=== PATIENT | female | born 1950 | race Native Hawaiian/Other Pacific Islander ===

== ENCOUNTER 2016-06-10 09:36 | Outpatient (CLI) | payer OTHER | END 2016-06-10 09:37 | disposition home or self-care (01) | DX: J45.909 Unspecified asthma, uncomplicated (principal) ==

== ENCOUNTER 2016-11-13 12:38 | Outpatient (CLI) | payer OTHER ==
[2016-11-13 13:22] LABS: BASOPHILS % (AUTO) 0.6 %; EOSINOPHILS # (AUTO) 0.4 10^3/uL (0.0-0.7); EOSINOPHILS % (AUTO) 5.2 %; HCT - HEMATOCRIT 43.2 % (37.0-47.0); HGB - HEMOGLOBIN 14.6 g/dL (12.0-16.0); LYMPHOCYTES # (AUTO) 2.1 10^3/uL (1.5-3.5); LYMPHOCYTES % (AUTO) 29.2 %; MEAN CORPUSCULAR HEMOGLOBIN 28.8 pg (27.0-31.0); MEAN CORPUSCULAR HGB CONC 33.7 g/dL (32.0-36.0); MEAN CORPUSCULAR VOLUME 85.4 fL (81.0-99.0); MEAN PLATELET VOLUME 7.6 fL (7.9-10.8); MONOCYTES # (AUTO) 0.6 10^3/uL (0.0-1.0); MONOCYTES % (AUTO) 7.9 %; NEUTROPHILS # (AUTO) 4.1 10^3/uL (1.5-6.6); NEUTROPHILS % (AUTO) 57.1 %; RED BLOOD COUNT 5.06 10^6/uL (4.20-5.40); RED CELL DISTRIBUTION WIDTH 13.8 % (12.0-15.0); UNCORRECTED WHITE BLOOD COUNT 7.1 x10^3/uL; WHITE BLOOD COUNT 7.1 x10^3/uL (4.8-10.8)
[2016-11-13 13:43] LABS: ALBUMIN/GLOBULIN RATIO 1.3 (1.0-2.2); BILIRUBIN,TOTAL 1.1 mg/dL (0.2-1.0); BUN - BLOOD UREA NITROGEN 14 mg/dL (6-20); CALCIUM 9.3 mg/dL (8.5-10.3); CARBON DIOXIDE - CO2 26 mmol/L (21-32); CHLORIDE 103 mmol/L (101-111); CHOL/HDL RATIO 4.1 (<4.4); CHOLESTEROL 182 mg/dL; CREATININE 0.8 mg/dL (0.4-1.0); GFR - MDRD 72 (>89); GLUCOSE 92 mg/dL (70-100); HDL CHOLESTEROL 44 mg/dL; LDL/HDL RATIO 2.4 (<4.4); POTASSIUM 3.7 mmol/L (3.5-5.0); SODIUM 137 mmol/L (135-145); TOTAL PROTEIN 7.7 g/dL (6.7-8.2); TRIGLYCERIDES 165 mg/dL; VLDL CHOLESTEROL 33 mg/dL
[2016-11-13 14:18] LABS: THYROID STIMULATING HORMONE 1.29 uIU/mL (0.34-5.60)
== END 2016-11-13 12:39 | disposition home or self-care (01) ==
LOC: LAB 12:38
PROVIDERS: ATTEND Physician Assistant Medical
DX: Z00.00 Encounter for general adult medical examination without abnormal findings (principal); G89.29 Other chronic pain; E78.2 Mixed hyperlipidemia; R73.9 Hyperglycemia, unspecified
CPT/HCPCS: 36415; 80053; 80061; 82306; 82607; 84443; 85025

== ENCOUNTER 2017-01-22 16:10 | Outpatient (CLI) | payer OTHER ==
[2017-01-22 16:37] LABS: BASOPHILS # (AUTO) 0.1 10^3/uL (0.0-0.1); BASOPHILS % (AUTO) 0.9 %; EOSINOPHILS # (AUTO) 0.4 10^3/uL (0.0-0.7); EOSINOPHILS % (AUTO) 4.3 %; HCT - HEMATOCRIT 44.9 % (37.0-47.0); LYMPHOCYTES # (AUTO) 2.7 10^3/uL (1.5-3.5); LYMPHOCYTES % (AUTO) 29.3 %; MEAN CORPUSCULAR HEMOGLOBIN 28.5 pg (27.0-31.0); MEAN CORPUSCULAR HGB CONC 33.5 g/dL (32.0-36.0); MEAN CORPUSCULAR VOLUME 85.1 fL (81.0-99.0); MEAN PLATELET VOLUME 7.4 fL (7.9-10.8); MONOCYTES # (AUTO) 0.5 10^3/uL (0.0-1.0); MONOCYTES % (AUTO) 5.7 %; NEUTROPHILS # (AUTO) 5.5 10^3/uL (1.5-6.6); NEUTROPHILS % (AUTO) 59.8 %; NUCLEATED RED BLOOD CELLS AUTO 0.1 /100WBC; RED BLOOD COUNT 5.28 10^6/uL (4.20-5.40); RED CELL DISTRIBUTION WIDTH 14.2 % (12.0-15.0); UNCORRECTED WHITE BLOOD COUNT 9.1 x10^3/uL; WHITE BLOOD COUNT 9.1 x10^3/uL (4.8-10.8)
[2017-01-22 16:39] LABS: PT - PROTHROMBIN TIME 11.8 secs (9.9-12.6)
[2017-01-22 16:45] LABS: ALBUMIN/GLOBULIN RATIO 1.3 (1.0-2.2); BILIRUBIN,TOTAL 1.2 mg/dL (0.2-1.0); CALCIUM 9.6 mg/dL (8.5-10.3); CREATININE 0.8 mg/dL (0.4-1.0); POTASSIUM 3.8 mmol/L (3.5-5.0); TOTAL PROTEIN 7.7 g/dL (6.7-8.2)
[2017-01-22 16:47] LABS: PARTIAL THROMBOPLASTIN TIME 30.6 secs (24.9-33.3)
== END 2017-01-22 16:11 | disposition home or self-care (01) ==
LOC: LAB 16:10
PROVIDERS: ATTEND Physician Assistant Medical
DX: Z01.812 Encounter for preprocedural laboratory examination (principal); M50.10 Cervical disc disorder with radiculopathy, unspecified cervical region
CPT/HCPCS: 36415; 80053; 85025; 85610; 85730

== ENCOUNTER 2017-01-29 08:52 | Observation (INO) | payer OTHER ==
--- NOTE | 2017-01-29 09:25 | ED Physician Documentation ---
PD HPI FOCAL NEURO - Stated complaint Stated Complaint: SLURRED SPEECH - Chief complaint Chief Complaint: Neuro - History obtained from History obtained from: Patient - History of Present Illness Timing - onset: Enter time (0200), Last night Timing - duration: Hours Timing - details: Abrupt onset, Still present Severity of deficit: Mild Weakness: No: Face, Arm, Hand, Leg, Foot, Right, Left Numbness: No: Face, Arm, Hand, Leg, Foot, Right, Left Associated symptoms: Headache Contributing factors: negative: Anticoagulated Baseline status: positive: A&OX3, ambulatory, indep Similar symptoms before: Has not had sx before Recently seen: Other (The patient is preparing for surgery on her neck scheduled for this thursday.) - Additional information Additional information: 66-year-old female was in her usual state of health yesterday and last night she developed a headache headache was fairly bad and she does not usually get headaches. She went to bed and awoke at about 2 AM noted that her speech was slurred and that she was listing to the left side. She went back to sleep and got up and went to go to work today and was sent home from work. 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 With some stuttering speech and some listing to the left she has come to the emergency department. Review of Systems Constitutional: denies: Fever, Fatigue Eyes: denies: Decreased vision Ears: denies: Ear pain Nose: denies: Rhinorrhea / runny nose, Congestion Throat: denies: Sore throat Cardiac: denies: Chest pain / pressure, Palpitations Respiratory: denies: Dyspnea, Cough GI: denies: Abdominal Pain, Nausea, Vomiting, Constipation, Diarrhea : denies: Dysuria, Frequency Skin: denies: Rash Musculoskeletal: reports: Neck pain. denies: Back pain, Extremity pain Neurologic: reports: Difficulty speaking, Headache. 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 GIN: Dilation and currettage - Present Medications Home Medications: Ambulatory Orders Medication Instructions Recorded Confirmed Pravastatin Sodium [Pravachol] 30 mg PO DAILY 03/24/13 01/29/17 hydroCHLOROthiazide [Hydrodiuril] 25 mg PO ONCE 03/24/13 01/29/17 Oxycodone HCl/Acetaminophen 1 - 2 each PO Q6H PRN #15 tablet 02/01/14 01/29/17 [Percocet 5-325 mg Tablet] Meloxicam 30 mg PO DAILY 01/29/17 01/29/17 - Allergies Allergies/Adverse Reactions: Allergies Allergy/AdvReac Type Severity Reaction Status Date / Time Penicillins Allergy Mild Rash Verified 03/24/13 15:24 - Social History Does the pt smoke?: No Smoking Status: Never smoker Does the pt drink ETOH?: No Does the pt have substance abuse?: No - POLST Patient has POLST: No PD ED PE NORMAL - Vitals Vital signs reviewed: Yes (hypertensive ) - General General: Alert and oriented X 3, No acute distress, Well developed/nourished - HEENT HEENT: Atraumatic, PERRL, EOMI, Ears normal, Moist mucous membranes, Pharynx benign - Neck Neck: Supple, no meningeal sign, No bony TTP - Cardiac Cardiac: RRR, No murmur - Respiratory Respiratory: No respiratory distress, Clear bilaterally - Abdomen Abdomen: Soft, Non tender - Back Back: No CVA TTP, No spinal TTP - Derm Derm: Normal color, Warm and dry, No rash - Extremities Extremities: No deformity, No edema - Neuro Neuro: Alert and oriented X 3, lvn lpn 2-12 intact, No motor deficit, No sensory deficit, Normal speech - Psych Psych: Normal mood, Normal affect NIHSS - Time Time: 09:15 - Level of Consciousness Level of consciousness: (0) Alert, Keenly responsive LOC Questions: (0) Answers both Q's correct LOC Commands: (0) Performs both correctly - Gaze Best Gaze: (0) Normal - Visual Visual: (0) No loss - Facial Palsy Facial Palsy: (0) Normal, symmetrical movement - Motor Arms (both separate) Motor Arm (right): (0) No drift Motor Arm (left): (0) No drift - Motor Legs (both separate) Motor Leg (right): (0) No drift Motor Leg (left): (0) No drift - Limb Ataxia Limb Ataxia: (0) Absent - Sensory Sensory: (0) Normal - Best Language Best Language: (0) No aphasia - Dysarthria Dysarthria: (1) [id number] dysarthria - Extinction and Inattention (formally neg Extinction and inattention: (0) No abnormality - Total Score/Results Total Score/Result: 1 Results - Vitals Vitals: Vital Signs - 24 hr 01/29/17 01/29/17 01/29/17 08:57 09:38 10:09 Temperature 36.5 C Heart Rate 65 61 56 L Respiratory 20 18 16 Rate Blood Pressure 173/81 H 154/79 H 141/70 H O2 Saturation 97 97 97 01/29/17 11:12 Temperature 36.7 C Heart Rate 58 L Respiratory 20 Rate Blood Pressure 148/74 H O2 Saturation 98 Oxygen O2 Source Room air - EKG (time done) 0912 Rate: Rate (enter#) (59) Rhythm: NSR QRS: Low voltage Other comments: Other comments (early transition ) Compare to prior EKG: Old EKG unavailable Computer interpretation: Agree with computer - Labs Labs: Laboratory Tests 01/29/17 01/29/17 01/29/17 08:59 09:15 09:15 WBC 6.8 RBC 4.97 Hgb 14.2 Hct 42.6 MCV 85.7 MCH 28.5 MCHC 33.3 RDW 14.0 Plt Count 225 MPV 8.0 Neut # 3.6 Lymph # 2.2 [place] # 0.5 Eos # 0.4 Baso # 0.0 Absolute Nucleated RBC 0.00 Nucleated RBC % 0.0 Sodium 139 Potassium 3.9 Chloride 102 Carbon Dioxide 26 Anion Gap 11.0 BUN 13 Creatinine 0.7 Estimated GFR (MDRD) 83 L Glucose 107 H POC Whole Bld Glucose 114 H Calcium 9.4 Total Bilirubin 0.9 AST 30 ALT 22 Alkaline Phosphatase 62 Troponin I Total Protein 7.3 Albumin 4.0 Globulin 3.3 Albumin/Globulin Ratio 1.2 Lipase 31 Urine Color Urine Clarity Urine pH Ur Specific [place] Urine Protein Urine Glucose (UA) Urine Ketones Urine Occult Blood Urine Nitrite Urine Bilirubin Urine Urobilinogen Ur Leukocyte Esterase Ur Microscopic Review Urine Culture Comments 01/29/17 01/29/17 09:15 09:54 WBC RBC Hgb Hct MCV MCH MCHC RDW Plt Count MPV Neut # Lymph # [place] # Eos # Baso # Absolute Nucleated RBC Nucleated RBC % Sodium Potassium Chloride Carbon Dioxide Anion Gap BUN Creatinine Estimated GFR (MDRD) Glucose POC Whole Bld Glucose Calcium Total Bilirubin AST ALT Alkaline Phosphatase Troponin I < 0.04 Total Protein Albumin Globulin Albumin/Globulin Ratio Lipase Urine Color YELLOW Urine Clarity CLEAR Urine pH 7.0 Ur Specific [place] <=1.005 Urine Protein NEGATIVE Urine Glucose (UA) NEGATIVE Urine Ketones NEGATIVE Urine Occult Blood NEGATIVE Urine Nitrite NEGATIVE Urine Bilirubin NEGATIVE Urine Urobilinogen 0.2 (NORMAL) Ur Leukocyte Esterase NEGATIVE Ur Microscopic Review NOT INDICATED Urine Culture Comments NOT INDICATED - Rads (name of study) CT head without Radiology: Prelim report reviewed (Impression: No acute intracranial abnormality identified. No significant change from the prior study. 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 She does have a sister and a friend here this morning that are able to corroborate that she does have some issue with her speech. They state that she has some slurring of her speech periodically and some stuttering to her speech. 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 She appears to have had a TIA or CVA and we are now seeking admission. Departure - Departure Disposition: ED Place in Observation Clinical Impression: TIA (transient ischemic attack) Qualifiers: Transient cerebral ischemia type: unspecified Qualified Code(s): G45.9 - Transient cerebral ischemic attack, unspecified Condition: Stable
[2017-01-29 09:36] LABS: BASOPHILS % (AUTO) 0.7 %; EOSINOPHILS # (AUTO) 0.4 10^3/uL (0.0-0.7); EOSINOPHILS % (AUTO) 6.5 %; HCT - HEMATOCRIT 42.6 % (37.0-47.0); HGB - HEMOGLOBIN 14.2 g/dL (12.0-16.0); LYMPHOCYTES # (AUTO) 2.2 10^3/uL (1.5-3.5); LYMPHOCYTES % (AUTO) 32.5 %; MEAN CORPUSCULAR HEMOGLOBIN 28.5 pg (27.0-31.0); MEAN CORPUSCULAR HGB CONC 33.3 g/dL (32.0-36.0); MEAN CORPUSCULAR VOLUME 85.7 fL (81.0-99.0); MONOCYTES # (AUTO) 0.5 10^3/uL (0.0-1.0); MONOCYTES % (AUTO) 7.3 %; NEUTROPHILS # (AUTO) 3.6 10^3/uL (1.5-6.6); RED BLOOD COUNT 4.97 10^6/uL (4.20-5.40); UNCORRECTED WHITE BLOOD COUNT 6.8 x10^3/uL; WHITE BLOOD COUNT 6.8 x10^3/uL (4.8-10.8)
[2017-01-29 09:46] LABS: ALBUMIN/GLOBULIN RATIO 1.2 (1.0-2.2); BILIRUBIN,TOTAL 0.9 mg/dL (0.2-1.0); CALCIUM 9.4 mg/dL (8.5-10.3); CREATININE 0.7 mg/dL (0.4-1.0); POTASSIUM 3.9 mmol/L (3.5-5.0); TOTAL PROTEIN 7.3 g/dL (6.7-8.2)
--- NOTE | 2017-01-29 09:59 | CT Preliminary Report ---
Exam: CT Head W/O IMPRESSION: No acute intracranial abnormality identified. No significant change from the prior study. If clinical concern persists, consider further assessment with MRI. [facility] SITE ID: [id number]
--- NOTE | 2017-01-29 10:01 | CT Report ---
EXAM: CT HEAD EXAM DATE: 01/29/2017 09:53 AM. CLINICAL HISTORY: Headache slurred speech listing to the left. . COMPARISON: CT 06/14/2014. TECHNIQUE: Multiaxial CT images were obtained from the foramen magnum to the vertex. IV contrast: Non e. Reformats: Coronal. In accordance with CT protocol optimization, one or more of the following dose reduction techniques w ere utilized for this exam: automated exposure control, adjustment of mA and/or KV based on patient s ize, or use of iterative reconstructive technique. FINDINGS: Parenchyma: Evidence of parenchymal volume loss again noted, primarily frontal. No acute hemorrhage, mass effect, or midline shift. Angel-white differentiation appears maintained. Extraaxial Spaces: No acute extra-axial collection. Ventricles: Appropriate in size and configuration. Sinuses: Imaged paranasal sinuses, orbits, and mastoids show no significant abnormality. Bones: No depressed skull fracture. Other: None. IMPRESSION: No acute intracranial abnormality identified. No significant change from the prior study. If clinical concern persists, consider further assessment with MRI. [facility] Referring Provider Line: [phone] SITE ID: [id number]
[2017-01-29 10:17] LABS: BILIRUBIN,URINE NEGATIVE (NEGATIVE); UA CHARGE (STRIP ONLY) YES; UR CULTURE IF IND NOT INDICATED
[2017-01-29] MEDS ORDERED: ACETAMINOPHEN 325 MG TABLET PO STA (11:29)
[2017-01-29] MEDS ORDERED: SODIUM CHLORIDE 0.9% 1,000 ML IV ONE (11:30)
[2017-01-29] MEDS ORDERED: ACETAMINOPHEN 325 MG TABLET PO ONE (11:50)
[2017-01-29] MEDS ORDERED: PROCHLORPERAZINE 10 MG/2 ML VIAL IVP PRN (13:33)
[2017-01-29] MEDS ORDERED: LISINOPRIL 5 MG TABLET PO SCH (13:47)
[2017-01-29] MEDS ORDERED: hydroCHLOROthiazide 25 MG TABLET PO SCH (14:00)
[2017-01-29 14:40] LABS: CHOL/HDL RATIO 4.2 (<4.4); CHOLESTEROL 181 mg/dL; HDL CHOLESTEROL 43 mg/dL; LDL/HDL RATIO 1.7 (<4.4); TRIGLYCERIDES 322 mg/dL; VLDL CHOLESTEROL 64 mg/dL
[2017-01-29] MEDS ORDERED: GADOBUTROL 10 MMOL/10 ML VIAL ONE (14:48)
[2017-01-29] MEDS: SODIUM CHLORIDE FLUSH 0.9% 10 ML SYRINGE IVP SCH ×2 (14:56→22:51)
[2017-01-29 14:57] LABS: PT - PROTHROMBIN TIME 11.6 secs (9.9-12.6)
[2017-01-29] MEDS ORDERED: GADOBUTROL 10 MMOL/10 ML VIAL IVP ONE (15:48)
--- NOTE | 2017-01-29 16:32 | MRI Preliminary Report ---
Exam: MRI Angio Brain W/O (MRA) IMPRESSION: MR HEAD 1. Motion artifact technically limits evaluation. 2. No acute infarct, intracranial hemorrhage, mass, hydrocephalus, abnormal postcontrast enhancement. 3. Scattered white matter changes that appear similar to 02/27/2014 and while nonspecific, may repres ent sequela of chronic small vessel ischemic disease. MRA HEAD 1. Motion artifact technically limits evaluation. 2. No definite occlusion, stenosis, aneurysm, or anomaly seen. [facility] SITE ID: [id number]
--- NOTE | 2017-01-29 16:32 | MRI Preliminary Report ---
Exam: MRI Brain W/WO IMPRESSION: MR HEAD 1. Motion artifact technically limits evaluation. 2. No acute infarct, intracranial hemorrhage, mass, hydrocephalus, abnormal postcontrast enhancement. 3. Scattered white matter changes that appear similar to 02/27/2014 and while nonspecific, may repres ent sequela of chronic small vessel ischemic disease. MRA HEAD 1. Motion artifact technically limits evaluation. 2. No definite occlusion, stenosis, aneurysm, or anomaly seen. [facility] SITE ID: [id number]
--- NOTE | 2017-01-29 16:35 | MRI Report ---
EXAMS: MRI AND MRA BRAIN EXAM DATE: 01/29/2017 04:07 PM. CLINICAL HISTORY: 66-year-old with transient slurred speech and left-sided weakness COMPARISON: CT head 01/29/2017; MR brain 02/27/2014. TECHNIQUE: MRI: Multiplanar, multisequence T1-weighted and fluid-sensitive MRI sequences of the brain were performed. Sequences optimized for routine evaluation. Other: None. Post-processing: None. IV C ontrast: 10 cc GADAVIST. MRA: Multiplanar, multisequence T1-weighted and fluid-sensitive MRA sequences of the brain were perfo rmed. Other: None. Post-processing: Multiplanar 3D MIP reconstructions. IV Contrast: None. FINDINGS: MRI: Motion artifact technically limits evaluation. Brain Volume: Normal for age. Parenchyma/Dura: No acute parenchymal hemorrhage, mass, or midline shift. There are scattered foci of T2/FLAIR signal hyperintensity seen that appears similar to MR 02/27/2014.No areas of restricted dif fusion to suggest acute infarct. There is a punctate foci susceptibility artifact seen within the lef t putamen (series 801, image 13) and posterior left turner radiata (series 801, image 16) that appear new compared to prior study. Findings likely represent old hemorrhagic blood products and may be due to microhemorrhages from hypertension or represent old hemorrhagic infarcts. No abnormal postcontras t enhancement. Pituitary: Normal. Ventricles/Cisterns: No definite abnormal extra-axial fluid collection/mass seen. Ventricles and sulc i appear age appropriate. Cisterns are patent. Fluid is seen within Meckel's caves. Visualized intern brand al auditory canals appear clear. Sinuses: Visualized paranasal sinuses appear clear. Mastoid air cells and middle ear cavities appear clear. Orbits: Normal. Vasculature: Visualized major intracranial flow voids appear maintained. Bones: Normal. Other: None. MRA: RIGHT Internal Carotid (ICA): No aneurysm, stenosis or anomaly. Middle Cerebral (MCA): No aneurysm, stenosis or anomaly. Anterior Cerebral (DAVID): No aneurysm, stenosis or anomaly. Posterior Cerebral (PROCESSOR INSPECTOR): No aneurysm, stenosis or anomaly. Posterior Communicating (P-COM): Not definitively seen. No aneurysm. Vertebral: No aneurysm, stenosis or anomaly in the visualized upper vertebral artery. LEFT Internal Carotid (ICA): No aneurysm, stenosis or anomaly. Middle Cerebral (MCA): No aneurysm, stenosis or anomaly. Anterior Cerebral (DAVID): No aneurysm, stenosis or anomaly. Posterior Cerebral (PROCESSOR INSPECTOR): No aneurysm, stenosis or anomaly. Posterior Communicating (P-COM): No aneurysm, stenosis or anomaly. Vertebral: No aneurysm, stenosis or anomaly in the visualized upper vertebral artery. MIDLINE Anterior Communicating (A-COM): No aneurysm, stenosis or anomaly. Basilar artery: No aneurysm, stenosis or anomaly. Other: None. IMPRESSION: MR HEAD 1. Motion artifact technically limits evaluation. 2. No acute infarct, intracranial hemorrhage, mass, hydrocephalus, abnormal postcontrast enhancement. 3. Scattered white matter changes that appear similar to 02/27/2014 and while nonspecific, may repres ent sequela of chronic small vessel ischemic disease. MRA HEAD 1. Motion artifact technically limits evaluation. 2. No definite occlusion, stenosis, aneurysm, or anomaly seen. [facility] Referring Provider Line: [phone] SITE ID: [id number]
--- NOTE | 2017-01-29 16:35 | MRI Report ---
EXAMS: MRI AND MRA BRAIN EXAM DATE: 01/29/2017 04:07 PM. CLINICAL HISTORY: 66-year-old with transient slurred speech and left-sided weakness COMPARISON: CT head 01/29/2017; MR brain 02/27/2014. TECHNIQUE: MRI: Multiplanar, multisequence T1-weighted and fluid-sensitive MRI sequences of the brain were performed. Sequences optimized for routine evaluation. Other: None. Post-processing: None. IV C ontrast: 10 cc GADAVIST. MRA: Multiplanar, multisequence T1-weighted and fluid-sensitive MRA sequences of the brain were perfo rmed. Other: None. Post-processing: Multiplanar 3D MIP reconstructions. IV Contrast: None. FINDINGS: MRI: Motion artifact technically limits evaluation. Brain Volume: Normal for age. Parenchyma/Dura: No acute parenchymal hemorrhage, mass, or midline shift. There are scattered foci of T2/FLAIR signal hyperintensity seen that appears similar to MR 02/27/2014.No areas of restricted dif fusion to suggest acute infarct. There is a punctate foci susceptibility artifact seen within the lef t putamen (series 801, image 13) and posterior left turner radiata (series 801, image 16) that appear new compared to prior study. Findings likely represent old hemorrhagic blood products and may be due to microhemorrhages from hypertension or represent old hemorrhagic infarcts. No abnormal postcontras t enhancement. Pituitary: Normal. Ventricles/Cisterns: No definite abnormal extra-axial fluid collection/mass seen. Ventricles and sulc i appear age appropriate. Cisterns are patent. Fluid is seen within Meckel's caves. Visualized hr intern al auditory canals appear clear. Sinuses: Visualized paranasal sinuses appear clear. Mastoid air cells and middle ear cavities appear clear. Orbits: Normal. Vasculature: Visualized major intracranial flow voids appear maintained. Bones: Normal. Other: None. MRA: RIGHT Internal Carotid (ICA): No aneurysm, stenosis or anomaly. Middle Cerebral (MCA): No aneurysm, stenosis or anomaly. Anterior Cerebral (DAVID): No aneurysm, stenosis or anomaly. Posterior Cerebral (PRODUCTION ESTIMATOR): No aneurysm, stenosis or anomaly. Posterior Communicating (P-COM): Not definitively seen. No aneurysm. Vertebral: No aneurysm, stenosis or anomaly in the visualized upper vertebral artery. LEFT Internal Carotid (ICA): No aneurysm, stenosis or anomaly. Middle Cerebral (MCA): No aneurysm, stenosis or anomaly. Anterior Cerebral (DAVID): No aneurysm, stenosis or anomaly. Posterior Cerebral (PRODUCTION ESTIMATOR): No aneurysm, stenosis or anomaly. Posterior Communicating (P-COM): No aneurysm, stenosis or anomaly. Vertebral: No aneurysm, stenosis or anomaly in the visualized upper vertebral artery. MIDLINE Anterior Communicating (A-COM): No aneurysm, stenosis or anomaly. Basilar artery: No aneurysm, stenosis or anomaly. Other: None. IMPRESSION: MR HEAD 1. Motion artifact technically limits evaluation. 2. No acute infarct, intracranial hemorrhage, mass, hydrocephalus, abnormal postcontrast enhancement. 3. Scattered white matter changes that appear similar to 02/27/2014 and while nonspecific, may repres ent sequela of chronic small vessel ischemic disease. MRA HEAD 1. Motion artifact technically limits evaluation. 2. No definite occlusion, stenosis, aneurysm, or anomaly seen. [facility] Referring Provider Line: [phone] SITE ID: [id number]
--- NOTE | 2017-01-29 16:38 | MRI Preliminary Report ---
Exam: MRI Angio Neck W/WO (MRA) IMPRESSION: Normal neck MRA. No hemodynamically significant stenoses. [facility] SITE ID: [id number]
--- NOTE | 2017-01-29 16:41 | MRI Report ---
EXAM: MR ANGIOGRAM NECK EXAM DATE: 01/29/2017 04:05 PM. CLINICAL HISTORY: 66-year-old with transient aphasia and left-sided weakness COMPARISON: MRA brain 01/29/2017. TECHNIQUE: Multiplanar, multisequence MRA sequences of the neck were performed. Other: None. Post-pro cessing: Multiplanar 3D MIP reconstructions. IV Contrast: 10 cc GADAVIST. Evaluation of arterial gina nosis is based on a NASCET method of measurement. FINDINGS: RIGHT Common Carotid: Patent. No dissection or significant stenosis. Internal Carotid: Patent. No dissection or significant stenosis. External Carotid: Patent. No dissection or significant stenosis. Vertebral: Patent. No dissection or significant stenosis. LEFT Common Carotid: Patent. No dissection or significant stenosis. Internal Carotid: Patent. No dissection or significant stenosis. External Carotid: Patent. No dissection or significant stenosis. Vertebral: Patent. No dissection or significant stenosis. Intracranial Circulation: No stenoses or aneurysms in the visualized portion of the intracranial vasc ulature. Other: The soft tissues, bones, and lung apices are within normal limits. IMPRESSION: Normal neck MRA. No hemodynamically significant stenoses. [facility] Referring Provider Line: [phone] SITE ID: [id number]
[2017-01-29] MEDS: ENOXAPARIN 40 MG/0.4 ML SYRINGE SUBQ SCH (16:46)
[2017-01-29] MEDS: HYDROmorphone 1 MG/ML CARPUJECT IVP PRN ×2 (16:48→19:10)
[2017-01-29] MEDS: SODIUM CHLORIDE FLUSH 0.9% 10 ML SYRINGE IVP PRN ×2 (16:49→23:32)
[2017-01-29] MEDS: ASPIRIN 325 MG TABLET PO SCH (17:48)
[2017-01-29] MEDS: FAMOTIDINE 20 MG TABLET PO SCH (17:48)
--- NOTE | 2017-01-29 19:23 | HISTORY & PHYSICAL EXAMINATION ---
DATE OF ADMISSION: 01/29/2017 HISTORY OF PRESENT ILLNESS: This is a 66-year-old white female with a history of hypertension on hydrochlorothiazide, history of arthritis for which she takes Mobic possibly daily, (she initially denied taking it daily), history of cervical spinal stenosis with bulging disks for which she is scheduled to undergo elective neck surgery with jordon placement of the vertebrae in approximately 2 weeks and she has had preop clearance already, history of obesity, history of hyperlipidemia on statin. The patient developed a headache suddenly and diffusely with some mild nausea and mild vertigo yesterday evening. She rested and this got slightly better. There was no vomiting. She was able to go to sleep and did sleep. She woke with a continued headache which was worse and worse vertigo with mild nausea. She drove herself to work, but then realized she was unable to work and drove herself to her primary doctor's office where she was seen briefly and advised to come to the emergency room for evaluation for stroke. In the emergency room, she was noted to have stuttering which a sister described was worse than her usual mild stuttering and she had slower or slurred speech, which was new, noted by the sister. The patient still complained of a headache but there was no photophobia or halos. She was given Tylenol in the ER with no relief of the headache. She underwent a head CT, which was unremarkable for bleeding or acute stroke and she is being placed in observation for evaluation of a transient ischemic attack. MEDICATIONS AT HOME: 1. Hydrochlorothiazide 25 mg daily. 2. Pravastatin 80 mg p.o. at bedtime. 3. Mobic, unknown dose, possibly daily. 4. Several additives such as calcium and multivitamin. ALLERGIES: SHE STATES NO KNOWN ALLERGIES, BUT THE CHART STATES SHE IS ALLERGIC TO PENICILLIN. SOCIAL HISTORY: She is a nonsmoker, she did smoke, but stopped 30 years ago. She drinks no alcohol, and denies any illicit drug use or any marijuana use. FAMILY HISTORY: Positive for diabetes and a half brother with early onset coronary artery disease with bypass surgery. She has family history of obesity. Both parents are , and she does not know what their causes of were. REVIEW OF SYSTEMS: The patient denies any cardiopulmonary symptoms. She denies any recent travel, changes of medication. A comprehensive review of systems was performed and the pertinent positives and negatives are stated in the HPI and here and the rest are negative. PHYSICAL EXAMINATION: GENERAL: Reveals an obese white female who is in no distress. She has possibly asymmetric facial musculature with drooping of the left lower eyelid and left lip, but she is able to perform smiling and cheek puffing with symmetry. VITAL SIGNS: Blood pressure 173/81, pulse 65 and sinus rhythm, afebrile, respiratory rate 20. HEENT: As above. Her oral mucosa appears moist. Her dentition appears normal grossly. NECK: Neck shows no JVD. No carotid bruits. No thyromegaly. No lymphadenopathy. CHEST: Clear. HEART: Sounds are normal. No audible murmur. ABDOMEN: Soft, obese. Positive bowel sounds. Nontender. EXTREMITIES: No clubbing, cyanosis, or edema. NEUROLOGIC: Neurologically as above and the rest of her neurologic exam is nonfocal. LABORATORY: Normal BMP, glucose 107. Normal liver tests. Troponin not detectable. CBC within normal limits. INR normal. Cholesterol 181, LDL 74, triglycerides 322. There was no chest x-ray done. Her head CT showed no intracranial abnormality acute identified. EKG: Normal sinus rhythm, rate of 60, early RS transition, otherwise within normal limits. IMPRESSION/DIAGNOSES: 1. Transient ischemic attack with headache, vertigo, stuttering speech and slight slurring of speech and possible facial asymmetry. 2. Hypertension. 3. Hypertriglyceridemia. 4. Obesity. 5. Cervical spinal stenosis and osteoarthritis on Mobic. PLAN: Place the patient in observation and on telemetry to rule out atrial fibrillation. Obtain an echocardiogram and carotid Dopplers to rule out cardiac and vascular source of embolus. Obtain repeat imaging of the brain with MRI and MRA as well as MRA of the head and neck. Continue to treat the hypertension and I discussed management of cholesterol and especially hypertriglyceridemia and diet with the patient. Check HbA1c to determine if she has borderline diabetes or full diabetes and in that case an anti-hyperglycemic agent will be started, which should help the triglyceride level. Otherwise, she will be placed on a triglyceride medication such as fenofibrate. Start aspirin daily and continue baby aspirin lifelong. Neurologic checks while she is here will be ordered. Daily Mobic is not recommended, as it increases the risk of cardiac disease, this was discussed with the patient. JOB #: [id number] EXT JOB #:[id number] ZACHARY
[2017-01-29] MEDS: oxyCODONE 5 MG TABLET PO PRN (23:32)
--- NOTE | 2017-01-30 00:04 | Ultrasound Preliminary Report ---
Exam: US Carotid Doppler Complete IMPRESSION: 1. No hemodynamically significant stenoses. 2. Both vertebral arteries are antegrade in flow. Validated velocity measurements with angiographic measurements and velocity criteria are extrapolated from diameter data as defined by the Society of Radiologists in Ultrasound Consensus Conference Radi ology 2003; 229;340-346. [facility] SITE ID: [id number]
--- NOTE | 2017-01-30 00:57 | Ultrasound Report ---
EXAM: CAROTID DOPPLER ULTRASOUND EXAM DATE: 01/29/2017 09:05 PM. CLINICAL HISTORY: Transient ischemic attack/cerebrovascular accident. COMPARISON: None. TECHNIQUE: Real-time sonographic vascular imaging was performed by the corn detasseler through the caroti d arterial system with a linear transducer utilizing color-flow, Doppler flow and spectral analysis. Multiple manufacturer's service representative static images were saved for review. FINDINGS: Both vertebral arteries are antegrade in flow. Mild atheromatous plaques are present in bot h carotid bulbs. Specifically, no hemodynamically significant stenoses are noted. Spectral waveform analysis is as follows: VELOCITIES: Right: CCA Prox: PSV 99 cm/sec. CCA Dist: PSV 87 cm/sec, EDV 16 cm/sec. ICA Prox: PSV 43 cm/sec, EDV 18 cm/sec. ICA Mid: PSV 67 cm/sec, EDV 27 cm/sec. ICA Dist: PSV 71 cm/sec, EDV 28 cm/sec. ECA: PSV 111 cm/sec. Vertebral Artery: PSV 51 cm/sec. RVA flow direction: Antegrade. Left: CCA Prox: PSV 73 cm/sec. CCA Dist: PSV 67 cm/sec, EDV 15 cm/sec. ICA Prox: PSV 69 cm/sec, EDV 21 cm/sec. ICA Mid: PSV 69 cm/sec, EDV 29 cm/sec. ICA Dist: PSV 115 cm/sec, EDV 40 cm/sec. ECA: PSV 80 cm/sec. Vertebral Artery: PSV 61 cm/sec. LVA flow direction: Antegrade. Other: None. IMPRESSION: 1. No hemodynamically significant stenoses. 2. Both vertebral arteries are antegrade in flow. Validated velocity measurements with angiographic measurements and velocity criteria are extrapolated from diameter data as defined by the Society of Radiologists in Ultrasound Consensus Conference Radi ology 2003; 229;340-346. [facility] Referring Provider Line: [phone] SITE ID: [id number]
[2017-01-30] MEDS: oxyCODONE 5 MG TABLET PO PRN ×3 (04:51→13:49)
[2017-01-30] MEDS: SODIUM CHLORIDE FLUSH 0.9% 10 ML SYRINGE IVP SCH (06:26)
[2017-01-30 07:30] LABS: HEMOGLOBIN A1C 0.61 g/dL
[2017-01-30] MEDS ORDERED: PRAVASTATIN 10 MG TABLET PO SCH (09:00)
[2017-01-30] MEDS ORDERED: MELOXICAM 7.5 MG TABLET PO SCH (09:00)
[2017-01-30] MEDS ORDERED: POLYETHYLENE GLYCOL 3350 17 GM PACKET PO SCH (09:00)
[2017-01-30] MEDS: FAMOTIDINE 20 MG TABLET PO SCH (09:55)
[2017-01-30] MEDS: ENOXAPARIN 40 MG/0.4 ML SYRINGE SUBQ SCH (09:55)
[2017-01-30] MEDS: ASPIRIN 325 MG TABLET PO SCH (09:55)
[2017-01-30 12:00] VITALS: BP 123/70
--- NOTE | 2017-01-30 12:55 | Discharge Plan ---
Discharge Plan Disposition: Home, Self Care Condition: Fair Diet: Diabetic Activity Restrictions: Get clearance for return to work from Dr Chen Shower Restrictions: No Driving Restrictions: No Weight Bearing: Full Weight Instruction Topics: Advance Care Plan, Directive Advance Medical, Power of Dump Motor Operator Agent Role, DNR Orders, Diabetes Healthy Meals, Diabetes Carbs, Diabetes Meal Planning, Diabetes Carbs Fats Protein Additional Instructions or Follow Up instructions: Start taking 1 baby aspirin daily Only take the Mobic "as needed for pain", not daily Get new Clearance for neck surgery from Dr Angel/Tori Morris No Smoking: If you smoke, Please STOP! Call for help. Follow-up with: Tori Morris PA-C [Primary Care Provider] -
--- NOTE | 2017-02-11 21:24 | PROVIDER PROGRESS NOTE ---
Assessment/Plan - Problem List (1) TIA (transient ischemic attack) Qualifiers: Transient cerebral ischemia type: unspecified Qualified Code(s): G45.9 - Transient cerebral ischemic attack, unspecified Assessment/Plan: Hospital course, results and Final Diagnoses: 1) TIA Echo WNL. CT head neg Carotid Dopplers WNL. MRI neck WNL. MRI brain showed changes consistent with chronic small vessel ischemia". The patient should be on lifelong ASA, which was started here. She should have aggressive attention to her risk factors (HTN, pre-DM and hypertriglyceridemia) . This was discussed with the patient at length at bedside. She will be [facility] today, with F/U with her PCP and consider a Neurologist. (2) HTN (hypertension) Qualifiers: Hypertension type: unspecified Qualified Code(s): I10 - Essential (primary ) hypertension Assessment/Plan: Continue medical management and salt restriction in diet, reviewed at length. The patient admitted to using alot of Soy for added salt and flavor enhancement. I advised her to stop this. (3) Hypertriglyceridemia Assessment/Plan: The patient's A1c is WNL at 6.1 but her fasting glu today is elevated at 128. I advised initial management for her hypertriglyceridemia with diet changes ( restricting sugar and starches). Further management should be done as an outpt. (4) Cervical spinal stenosis Assessment/Plan: The patient was advised to be re-seen by her PCP for clearance for elective c- spine surgery. - Lab Result Fish Bone Diagrams: 01/29/17 09:15 01/29/17 09:15 Subjective - Subjective Patient Reports: Feeling Better, Other (No further headache, less stuttering of speech) Objective Vital Signs: Oxygen O2 Source Room air General: Alert, Oriented x3 HEENT: Mucous membr. moist/pink Neck: Supple, +2 carotid pulse wo bruit Neuro: Non Focal, Other (No facial droop seen. Less stuttering of speech as we spoke today. No other focal findings on Neuro exam.) Cardiovascular: Regular rate, No murmurs Respiratory: No respiratory distress Extremities: No edema - Results Results: Laboratory Results WBC 6.8 x10^3/uL (4.8-10.8) 01/29/17 09:15 RBC 4.97 10^6/uL (4.20-5.40) 01/29/17 09:15 Hgb 14.2 g/dL (12.0-16.0) 01/29/17 09:15 Hct 42.6 % (37.0-47.0) 01/29/17 09:15 MCV 85.7 fL (81.0-99.0) 01/29/17 09:15 MCH 28.5 pg (27.0-31.0) 01/29/17 09:15 MCHC 33.3 g/dL (32.0-36.0) 01/29/17 09:15 RDW 14.0 % (12.0-15.0) 01/29/17 09:15 Plt Count 225 10^3/uL (130-450) 01/29/17 09:15 MPV 8.0 fL (7.9-10.8) 01/29/17 09:15 Neut # 3.6 10^3/uL (1.5-6.6) 01/29/17 09:15 Lymph # 2.2 10^3/uL (1.5-3.5) 01/29/17 09:15 [place] # 0.5 10^3/uL (0.0-1.0) 01/29/17 09:15 Eos # 0.4 10^3/uL (0.0-0.7) 01/29/17 09:15 Baso # 0.0 10^3/uL (0.0-0.1) 01/29/17 09:15 Absolute Nucleated RBC 0.00 x10^3/uL 01/29/17 09:15 Nucleated RBC % 0.0 /100WBC 01/29/17 09:15 PT 11.6 secs (9.9-12.6) 01/29/17 14:40 INR 1.0 (0.8-1.2) 01/29/17 14:40 Sodium 139 mmol/L (135-145) 01/29/17 09:15 Potassium 3.9 mmol/L (3.5-5.0) 01/29/17 09:15 Chloride 102 mmol/L (101-111) 01/29/17 09:15 Carbon Dioxide 26 mmol/L (21-32) 01/29/17 09:15 Anion Gap 11.0 (6-13) 01/29/17 09:15 BUN 13 mg/dL (6-20) 01/29/17 09:15 Creatinine 0.7 mg/dL (0.4-1.0) 01/29/17 09:15 Estimated GFR (MDRD) 83 (>89) L 01/29/17 09:15 Glucose 107 mg/dL (70-100) H 01/29/17 09:15 POC Whole Bld Glucose 114 mg/dL (70 - 100) H 01/29/17 08:59 Glycated Hemoglobin 6.1 % (4.6-6.2) 01/30/17 05:30 Estim Average Glucose 128 (70-100) H 01/30/17 05:30 Calcium 9.4 mg/dL (8.5-10.3) 01/29/17 09:15 Total Bilirubin 0.9 mg/dL (0.2-1.0) 01/29/17 09:15 AST 30 IU/L (10-42) 01/29/17 09:15 ALT 22 IU/L (10-60) 01/29/17 09:15 Alkaline Phosphatase 62 IU/L (42-121) 01/29/17 09:15 Troponin I < 0.04 ng/mL (<0.49) 01/29/17 09:15 Total Protein 7.3 g/dL (6.7-8.2) 01/29/17 09:15 Albumin 4.0 g/dL (3.2-5.5) 01/29/17 09:15 Globulin 3.3 g/dL (2.1-4.2) 01/29/17 09:15 Albumin/Globulin Ratio 1.2 (1.0-2.2) 01/29/17 09:15 Triglycerides 322 mg/dL (-149) H 01/29/17 09:15 Cholesterol 181 mg/dL (-199) 01/29/17 09:15 LDL Cholesterol, Calc 74 mg/dL (-129) 01/29/17 09:15 VLDL Cholesterol 64 mg/dL 01/29/17 09:15 HDL Cholesterol 43 mg/dL (60-) L 01/29/17 09:15 LDL/HDL Ratio 1.7 (<4.4) 01/29/17 09:15 Cholesterol/HDL Ratio 4.2 (<4.4) 01/29/17 09:15 Lipase 31 U/L (22-51) 01/29/17 09:15 Urine Color YELLOW 01/29/17 09:54 Urine Clarity CLEAR (CLEAR) 01/29/17 09:54 Urine pH 7.0 PH (5.0-7.5) 01/29/17 09:54 Ur Specific [place] <=1.005 (1.002-1.030) 01/29/17 09:54 Urine Protein NEGATIVE mg/dL (NEGATIVE) 01/29/17 09:54 Urine Glucose (UA) NEGATIVE mg/dL (NEGATIVE) 01/29/17 09:54 Urine Ketones NEGATIVE mg/dL (NEGATIVE) 01/29/17 09:54 Urine Occult Blood NEGATIVE (NEGATIVE) 01/29/17 09:54 Urine Nitrite NEGATIVE (NEGATIVE) 01/29/17 09:54 Urine Bilirubin NEGATIVE (NEGATIVE) 01/29/17 09:54 Urine Urobilinogen 0.2 (NORMAL) E.U./dL (NORMAL) 01/29/17 09:54 Ur Leukocyte Esterase NEGATIVE (NEGATIVE) 01/29/17 09:54 Ur Microscopic Review NOT INDICATED 01/29/17 09:54 Urine Culture Comments NOT INDICATED 01/29/17 09:54 - Procedures Procedures: Procedures COLONOSCOPY (03/25/13)
== END 2017-01-30 14:03 | disposition home or self-care (01) ==
LOC: ED 08:52 → OBS 13:33
PROVIDERS: ADMIT Internal Medicine; ATTEND Internal Medicine
DX: G45.9 Transient cerebral ischemic attack, unspecified (principal); I10 Essential (primary) hypertension; E78.1 Pure hyperglyceridemia; E66.9 Obesity, unspecified; M48.02 Spinal stenosis, cervical region; M19.90 Unspecified osteoarthritis, unspecified site; R73.03 Prediabetes; E86.0 Dehydration; G47.30 Sleep apnea, unspecified; Z79.1 Long term (current) use of non-steroidal anti-inflammatories (NSAID); Z68.38 Body mass index [BMI] 38.0-38.9, adult; Z87.891 Personal history of nicotine dependence
CPT/HCPCS: 36415; 70450; 70544; 70549; 70553; 80053; 80061; 81003; 83036; 83690; 84484; 85025; 85610; 93005; 93306; 93880; 96361; 96372; 96374; 96376; 99218; 99284; 99285; A9270; A9585; J1170; J1650; 81001; 87086; 96360

== ENCOUNTER 2017-03-31 11:27 | Outpatient (CLI) | payer OTHER ==
[2017-03-31 12:14] LABS: CHOL/HDL RATIO 4.5 (<4.4); CHOLESTEROL 189 mg/dL; GLUCOSE,FASTING 110 mg/dL (70-100); HDL CHOLESTEROL 42 mg/dL; LDL/HDL RATIO 1.7 (<4.4); TRIGLYCERIDES 368 mg/dL; VLDL CHOLESTEROL 74 mg/dL
[2017-03-31 12:16] LABS: HEMOGLOBIN A1C 0.62 g/dL
== END 2017-03-31 11:28 | disposition home or self-care (01) ==
LOC: LAB 11:27
PROVIDERS: ATTEND Physician Assistant Medical
DX: R73.9 Hyperglycemia, unspecified (principal); E78.2 Mixed hyperlipidemia
CPT/HCPCS: 36415; 80061; 82947; 83036; 84450; 84460

== ENCOUNTER 2017-05-26 08:00 | Outpatient (CLI) | payer MEDICARE, OTHER ==
[2017-05-26 14:46] LABS: BILIRUBIN,URINE NEGATIVE (NEGATIVE); GLUCOSE, URINE (UA) NEGATIVE (NEGATIVE); KETONES,URINE (UA) NEGATIVE (NEGATIVE); LEUKOCYTE ESTERASE, URINE NEGATIVE (NEGATIVE); NITRITE,URINE NEGATIVE (NEGATIVE); OCCULT BLOOD,URINE LARGE (NEGATIVE); PROTEIN,URINE >=300 mg/dL (NEGATIVE); UROBILINOGEN,URINE 0.2 (NORMAL) E.U./dL (NORMAL)
[2017-05-26 14:53] LABS: CLARITY,URINE CLOUDY (CLEAR)
[2017-05-26 14:57] LABS: BACTERIA,URINE Moderate /HPF (None Seen); RBC,URINE TNTC /HPF (0-5); SQUAMOUS EPITHELIAL CELL,UR NONE SEEN (<= Few)
== END 2017-05-26 08:01 | disposition home or self-care (01) ==
LOC: LAB.R 08:00
PROVIDERS: ATTEND Physician Assistant Medical
DX: R31.9 Hematuria, unspecified (principal)
CPT/HCPCS: 81001; 87086

== ENCOUNTER 2017-06-01 14:49 | Outpatient (CLI) | payer MEDICARE ==
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
== END 2017-06-01 14:50 | disposition home or self-care (01) ==
LOC: DI 14:49
PROVIDERS: ATTEND Physician Assistant Medical
DX: M50.10 Cervical disc disorder with radiculopathy, unspecified cervical region (principal); Z98.1 Arthrodesis status
CPT/HCPCS: 72050

== ENCOUNTER 2018-01-14 09:13 | Outpatient (CLI) | payer MEDICARE, BC ==
[2018-01-14 10:04] LABS: BASOPHILS % (AUTO) 0.8 %; EOSINOPHILS # (AUTO) 0.4 10^3/uL (0.0-0.7); EOSINOPHILS % (AUTO) 7.1 %; HGB - HEMOGLOBIN 15.3 g/dL (12.0-16.0); LYMPHOCYTES # (AUTO) 1.7 10^3/uL (1.5-3.5); MEAN CORPUSCULAR HEMOGLOBIN 28.9 pg (27.0-31.0); MEAN CORPUSCULAR HGB CONC 33.1 g/dL (32.0-36.0); MEAN CORPUSCULAR VOLUME 87.3 fL (81.0-99.0); MEAN PLATELET VOLUME 7.6 fL (7.9-10.8); MONOCYTES # (AUTO) 0.4 10^3/uL (0.0-1.0); MONOCYTES % (AUTO) 7.7 %; NEUTROPHILS # (AUTO) 2.9 10^3/uL (1.5-6.6); NEUTROPHILS % (AUTO) 53.4 %; PLT - PLATELET COUNT 200 10^3/uL (130-450); RED BLOOD COUNT 5.29 10^6/uL (4.20-5.40); RED CELL DISTRIBUTION WIDTH 13.7 % (12.0-15.0); WHITE BLOOD COUNT 5.4 x10^3/uL (4.8-10.8)
[2018-01-14 10:57] LABS: ALBUMIN 3.9 g/dL (3.2-5.5); ALBUMIN/GLOBULIN RATIO 1.3 (1.0-2.2); ALKALINE PHOSPHATASE 66 IU/L (42-121); ALT ALANINE AMINOTRANSFERASE 19 IU/L (10-60); AST ASPARTATE AMINOTRANSFERASE 25 IU/L (10-42); BILIRUBIN,TOTAL 1.5 mg/dL (0.2-1.0); BUN - BLOOD UREA NITROGEN 14 mg/dL (6-20); CALCIUM 8.9 mg/dL (8.5-10.3); CARBON DIOXIDE - CO2 29 mmol/L (21-32); CHLORIDE 101 mmol/L (101-111); CHOLESTEROL 153 mg/dL; CREATININE 0.8 mg/dL (0.4-1.0); GFR - MDRD 71 (>89); GLUCOSE 101 mg/dL (70-100); HB2 TOTAL 16.2 g/dL; HDL CHOLESTEROL 38 mg/dL; HEMOGLOBIN A1C 0.65 g/dL; HEMOGLOBIN A1C % 5.8 % (4.6-6.2); LDL CHOLESTEROL,CALCULATED 66 mg/dL; LDL/HDL RATIO 1.7 (<4.4); SODIUM 138 mmol/L (135-145); VLDL CHOLESTEROL 49 mg/dL
[2018-01-14 11:37] LABS: THYROID STIMULATING HORMONE 1.64 uIU/mL (0.34-5.60)
[2018-01-15 16:56] LABS: HEPATITIS C ANTIBODY NON-REACTIVE (NON-REACTIVE)
== END 2018-01-14 09:14 | disposition home or self-care (01) ==
LOC: LAB 09:13
PROVIDERS: ATTEND Physician Assistant Medical
DX: E78.2 Mixed hyperlipidemia (principal); R41.89 Other symptoms and signs involving cognitive functions and awareness; R73.9 Hyperglycemia, unspecified; Z79.899 Other long term (current) drug therapy; Z13.818 Encounter for screening for other digestive system disorders; Z72.89 Other problems related to lifestyle
CPT/HCPCS: 36415; 80053; 80061; 82607; 83036; 83721; 84443; 85025; 86803

== ENCOUNTER 2018-08-19 08:09 | Outpatient (CLI) | payer MEDICARE, BC ==
[2018-08-19 08:23] LABS: BASOPHILS # (AUTO) 0.1 10^3/uL (0.0-0.1); BASOPHILS % (AUTO) 1.2 %; EOSINOPHILS # (AUTO) 0.3 10^3/uL (0.0-0.7); EOSINOPHILS % (AUTO) 5.2 %; HGB - HEMOGLOBIN 14.1 g/dL (12.0-16.0); LYMPHOCYTES # (AUTO) 1.9 10^3/uL (1.5-3.5); LYMPHOCYTES % (AUTO) 34.3 %; MEAN CORPUSCULAR HEMOGLOBIN 28.6 pg (27.0-31.0); MEAN CORPUSCULAR HGB CONC 32.8 g/dL (32.0-36.0); MEAN CORPUSCULAR VOLUME 87.3 fL (81.0-99.0); MEAN PLATELET VOLUME 7.4 fL (7.9-10.8); MONOCYTES # (AUTO) 0.4 10^3/uL (0.0-1.0); MONOCYTES % (AUTO) 8.3 %; NEUTROPHILS # (AUTO) 2.8 10^3/uL (1.5-6.6); PLT - PLATELET COUNT 237 10^3/uL (130-450); RED BLOOD COUNT 4.92 10^6/uL (4.20-5.40); RED CELL DISTRIBUTION WIDTH 13.8 % (12.0-15.0); WHITE BLOOD COUNT 5.4 x10^3/uL (4.8-10.8)
[2018-08-19 08:33] LABS: CALCIUM 9.3 mg/dL (8.5-10.3); CREATININE 0.8 mg/dL (0.4-1.0)
== END 2018-08-19 08:10 | disposition home or self-care (01) ==
LOC: LAB 08:09
PROVIDERS: ATTEND Family Medicine
DX: I10 Essential (primary) hypertension (principal); Z79.899 Other long term (current) drug therapy
CPT/HCPCS: 36415; 80048; 85025

== ENCOUNTER 2018-09-13 04:10 | Emergency (ER) | payer MEDICARE, BC ==
--- NOTE | 2018-09-13 04:25 | ED Physician Documentation ---
PD HPI FEMALE - Stated complaint Stated Complaint: FEM - Chief complaint Chief Complaint: Abd Pain - History obtained from History obtained from: Patient - History of Present Illness Timing - onset: How many hours ago (2) Timing - details: Abrupt onset, Intermittant Pain level max: 2 Associated symptoms: Pelvic pain, Dysuria, Hematuria Similar symptoms before: Has not had sx before Recently seen: Not recently seen Review of Systems Constitutional: reports: Reviewed and negative GI: reports: Reviewed and negative : reports: Dysuria, Hematuria Musculoskeletal: denies: Back pain PD PAST MEDICAL HISTORY - Past Medical History Cardiovascular: Hypertension, High cholesterol Respiratory: Asthma, Sleep apnea Endocrine/Autoimmune: None GI: None : None HEENT: None Psych: None Musculoskeletal: Osteoarthritis Derm: Other - Past Surgical History Past Surgical History: Yes Ortho: Shoulder arthroplasty /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 and 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 - Present Medications Home Medications: Ambulatory Orders Medication Instructions Recorded Confirmed Pravastatin Sodium [Pravachol] 30 mg PO DAILY 03/24/13 01/29/17 hydroCHLOROthiazide [Hydrodiuril] 25 mg PO ONCE 03/24/13 01/29/17 Meloxicam 30 mg PO DAILY 01/29/17 01/29/17 Aspirin [Sebas] 325 mg PO DAILYWM tablet 01/30/17 Oxycodone HCl 5 mg PO Q6H PRN 01/30/17 01/30/17 Nitrofurantoin Monohyd/M-Cryst 100 mg PO BID #13 capsule 09/13/18 [Macrobid 100 mg Capsule] - Allergies Allergies/Adverse Reactions: Allergies Allergy/AdvReac Type Severity Reaction Status Date / Time Penicillins Allergy Mild Rash Verified 03/24/13 15:24 - Social History Does the pt smoke?: No Smoking Status: Former smoker Does the pt drink ETOH?: No Does the pt have substance abuse?: No - POLST Patient has POLST: No PD ED PE NORMAL - Vitals Vital signs reviewed: Yes - General General: Alert and oriented X 3, No acute distress, Well developed/nourished - Cardiac Cardiac: RRR, No murmur - Respiratory Respiratory: No respiratory distress, Clear bilaterally - Abdomen Abdomen: Normal bowel sounds, Soft, Non tender, Non distended - Back Back: No CVA TTP Results - Vitals Vitals: Oxygen O2 Source Room air - Labs Labs: Microbiology 09/13/18 04:21 Urine Culture - Preliminary Urine,Clean Catch Escherichia Coli Laboratory Tests 09/13/18 09/13/18 09/13/18 04:21 04:56 04:56 WBC 12.7 H RBC 4.87 Hgb 14.3 Hct 42.4 MCV 87.0 MCH 29.3 MCHC 33.7 RDW 13.8 Plt Count 224 MPV 7.9 Neut # (Auto) 9.7 H Lymph # (Auto) 1.7 [place] # (Auto) 1.0 Eos # (Auto) 0.3 Baso # (Auto) 0.1 Absolute Nucleated RBC 0.00 Nucleated RBC % 0.0 Sodium 139 Potassium 4.0 Chloride 103 Carbon Dioxide 26 Anion Gap 10.0 BUN 16 Creatinine 0.8 Estimated GFR (MDRD) 71 L Glucose 110 H Calcium 9.4 Urine Color RED/BLOODY Urine Clarity SL. CLOUDY Urine pH 7.0 Ur Specific [place] 1.015 Urine Protein Urine Glucose (UA) NEGATIVE Urine Ketones TRACE Urine Occult Blood LARGE H Urine Nitrite Urine Bilirubin NEGATIVE Urine Urobilinogen Ur Leukocyte Esterase Urine RBC TNTC H Urine WBC 6-10 H Ur Squamous Epith Cells NONE SEEN Urine Bacteria Rare Ur Microscopic Review INDICATED Urine Culture Comments INDICATED PD MEDICAL DECISION MAKING - ED course Complexity details: reviewed results, re-evaluated patient, considered differential, d/w patient Departure - Departure Disposition: 01 Home, Self Care Clinical Impression: Hematuria Condition: Good Instructions: ED Hematuria Prescriptions: Nitrofurantoin Monohyd/M-Cryst [Macrobid 100 mg Capsule] 100 mg PO BID #13 capsule Comments: You are being prescribed an antibiotic, as urinary tract infection is a possible cause of the blood in your urine. If this is the case, your symptoms should improve within 2-3 days. However, I recommend that you follow up with your primary care physician whether or not the symptoms improve, as they might suggest further testing to exclude other causes of blood in the urine. Please return to the emergency department if your symptoms worsen in any way. Discharge Date/Time: 09/13/18 06:30
[2018-09-13 05:16] LABS: BASOPHILS # (AUTO) 0.1 10^3/uL (0.0-0.1); BASOPHILS % (AUTO) 0.5 %; EOSINOPHILS # (AUTO) 0.3 10^3/uL (0.0-0.7); EOSINOPHILS % (AUTO) 2.2 %; HGB - HEMOGLOBIN 14.3 g/dL (12.0-16.0); LYMPHOCYTES # (AUTO) 1.7 10^3/uL (1.5-3.5); LYMPHOCYTES % (AUTO) 13.7 %; MEAN CORPUSCULAR HEMOGLOBIN 29.3 pg (27.0-31.0); MEAN CORPUSCULAR HGB CONC 33.7 g/dL (32.0-36.0); MEAN PLATELET VOLUME 7.9 fL (7.9-10.8); MONOCYTES % (AUTO) 7.6 %; NEUTROPHILS # (AUTO) 9.7 10^3/uL (1.5-6.6); PLT - PLATELET COUNT 224 10^3/uL (130-450); RED BLOOD COUNT 4.87 10^6/uL (4.20-5.40); RED CELL DISTRIBUTION WIDTH 13.8 % (12.0-15.0); WHITE BLOOD COUNT 12.7 x10^3/uL (4.8-10.8)
[2018-09-13 05:36] LABS: CALCIUM 9.4 mg/dL (8.5-10.3); CREATININE 0.8 mg/dL (0.4-1.0)
[2018-09-13 05:46] LABS: GLUCOSE, URINE (UA) NEGATIVE (NEGATIVE); OCCULT BLOOD,URINE LARGE (NEGATIVE)
[2018-09-13 05:50] LABS: CLARITY,URINE SL. CLOUDY (CLEAR)
[2018-09-13 05:51] LABS: BILIRUBIN,URINE NEGATIVE (NEGATIVE); ICTOTEST,URINE NEGATIVE; KETONES,URINE (UA) TRACE mg/dL (NEGATIVE)
[2018-09-13 05:56] LABS: BACTERIA,URINE Rare /HPF (None Seen); RBC,URINE TNTC /HPF (0-5); SQUAMOUS EPITHELIAL CELL,UR NONE SEEN (<= Few)
[2018-09-13] MEDS ORDERED: NITROFURANTOIN MACRO 100 MG CAPSULE PO STA (06:15)
[2018-09-13 06:28] VITALS: BP 121/68
== END 2018-09-13 06:30 | disposition home or self-care (01) ==
LOC: ED 04:10
DX: R31.9 Hematuria, unspecified (principal); R30.0 Dysuria; I10 Essential (primary) hypertension; Z79.82 Long term (current) use of aspirin; Z87.891 Personal history of nicotine dependence
CPT/HCPCS: 36415; 80048; 81001; 85025; 87086; 87181; 99283; A9270; 80053; 81003; 83690

== ENCOUNTER 2018-09-22 08:00 | Outpatient (CLI) | payer MEDICARE, BC | END 2018-09-22 23:59 | disposition home or self-care (01) | LOC: LAB.R 08:00 | PROVIDERS: ATTEND Family Medicine | DX: R30.0 Dysuria (principal); R35.0 Frequency of micturition | CPT/HCPCS: 87086 ==

== ENCOUNTER 2018-12-06 16:32 | Outpatient (CLI) | payer MEDICARE, BC ==
--- NOTE | 2018-12-06 22:39 | XRAY Report ---
Reason: FLEXOR TENOSYNOVITIS OF WRIST Procedure Date: 12/06/2018 Accession Number: [id number] / [id number] Procedure: XR - Wrist 3 View LT CPT Code: FULL RESULT: EXAM: LEFT WRIST RADIOGRAPHY EXAM DATE: 12/06/2018 05:30 PM. CLINICAL HISTORY: FLEXOR TENOSYNOVITIS OF WRIST. Fall, pain COMPARISON: HAND 3 VIEW LT 02/11/2016 4:09 PM. TECHNIQUE: 3 views. FINDINGS: Bones: Normal. No fractures or bone lesions. Joints: Mild degenerative changes in the first carpometacarpal joint. Soft Tissues: Normal. No soft tissue swelling. IMPRESSION: Mild degenerative changes. No evidence of acute fracture. [facility]
== END 2018-12-06 16:33 | disposition home or self-care (01) ==
LOC: DI 16:32
PROVIDERS: ATTEND Family Medicine
DX: M65.832 Other synovitis and tenosynovitis, left forearm (principal); M19.032 Primary osteoarthritis, left wrist

== ENCOUNTER 2019-01-18 14:01 | Outpatient (CLI) | payer MEDICARE, BC ==
[2019-01-18 15:31] VITALS: BP 96/70
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
== END 2019-01-18 14:02 | disposition home or self-care (01) ==
LOC: SC 14:01
PROVIDERS: ATTEND Internal Medicine Pulmonary Disease
DX: G47.33 Obstructive sleep apnea (adult) (pediatric) (principal)
CPT/HCPCS: 99203; G0463; 99212

== ENCOUNTER 2019-09-03 09:40 | Outpatient (CLI) | payer MEDICARE, BC ==
[2019-09-03 09:57] LABS: BASOPHILS # (AUTO) 0.1 10^3/uL (0.0-0.1); BASOPHILS % (AUTO) 0.9 %; EOSINOPHILS # (AUTO) 0.4 10^3/uL (0.0-0.7); EOSINOPHILS % (AUTO) 6.2 %; HGB - HEMOGLOBIN 14.8 g/dL (12.0-16.0); LYMPHOCYTES % (AUTO) 33.7 %; MEAN CORPUSCULAR HEMOGLOBIN 29.1 pg (27.0-31.0); MEAN CORPUSCULAR HGB CONC 32.8 g/dL (32.0-36.0); MEAN CORPUSCULAR VOLUME 88.8 fL (81.0-99.0); MEAN PLATELET VOLUME 9.3 fL (7.9-10.8); MONOCYTES # (AUTO) 0.5 10^3/uL (0.0-1.0); MONOCYTES % (AUTO) 7.8 %; NEUTROPHILS % (AUTO) 51.1 %; PLT - PLATELET COUNT 201 10^3/uL (130-450); RED BLOOD COUNT 5.08 10^6/uL (4.20-5.40); RED CELL DISTRIBUTION WIDTH 13.1 % (12.0-15.0); WHITE BLOOD COUNT 5.8 x10^3/uL (4.8-10.8)
[2019-09-03 10:17] LABS: HB2 TOTAL 15.3 g/dL; HEMOGLOBIN A1C 0.62 g/dL; HEMOGLOBIN A1C % 5.9 % (4.6-6.2)
[2019-09-03 10:22] LABS: ALBUMIN 3.9 g/dL (3.2-5.5); ALBUMIN/GLOBULIN RATIO 1.3 (1.0-2.2); ALKALINE PHOSPHATASE 59 IU/L (42-121); ALT ALANINE AMINOTRANSFERASE 22 IU/L (10-60); AST ASPARTATE AMINOTRANSFERASE 25 IU/L (10-42); BILIRUBIN,TOTAL 1.7 mg/dL (0.2-1.0); BUN - BLOOD UREA NITROGEN 14 mg/dL (6-20); CALCIUM 8.8 mg/dL (8.5-10.3); CARBON DIOXIDE - CO2 26 mmol/L (21-32); CHLORIDE 101 mmol/L (101-111); CHOL/HDL RATIO 4.7 (<4.4); CHOLESTEROL 156 mg/dL; CREATININE 0.8 mg/dL (0.4-1.0); GLUCOSE 105 mg/dL (70-100); HDL CHOLESTEROL 33 mg/dL; LDL CHOLESTEROL,CALCULATED 73 mg/dL; LDL/HDL RATIO 2.2 (<4.4); SODIUM 136 mmol/L (135-145); VLDL CHOLESTEROL 50 mg/dL
== END 2019-09-03 09:41 | disposition home or self-care (01) ==
LOC: LAB 09:40
PROVIDERS: ATTEND Surgery
DX: I10 Essential (primary) hypertension (principal); R73.9 Hyperglycemia, unspecified; E66.3 Overweight; E78.2 Mixed hyperlipidemia; J45.909 Unspecified asthma, uncomplicated
CPT/HCPCS: 36415; 80053; 80061; 83036; 83721; 84443; 85025

== ENCOUNTER 2020-12-21 08:23 | Outpatient (CLI) | payer MEDICARE, BC ==
[2020-12-21 08:45] LABS: BASOPHILS % (AUTO) 0.8 %; EOSINOPHILS # (AUTO) 0.4 10^3/uL (0.0-0.7); EOSINOPHILS % (AUTO) 6.9 %; HCT - HEMATOCRIT 43.1 % (37.0-47.0); MEAN CORPUSCULAR HGB CONC 32.5 g/dL (32.0-36.0); MEAN CORPUSCULAR VOLUME 89.2 fL (81.0-99.0); MEAN PLATELET VOLUME 9.2 fL (7.9-10.8); MONOCYTES # (AUTO) 0.4 10^3/uL (0.0-1.0); NEUTROPHILS # (AUTO) 2.3 10^3/uL (1.5-6.6); NEUTROPHILS % (AUTO) 45.1 %; PLT - PLATELET COUNT 218 10^3/uL (130-450); RED BLOOD COUNT 4.83 10^6/uL (4.20-5.40); RED CELL DISTRIBUTION WIDTH 13.5 % (12.0-15.0); WHITE BLOOD COUNT 5.1 x10^3/uL (4.8-10.8)
[2020-12-21 09:04] LABS: ALBUMIN 3.8 g/dL (3.2-5.5); ALBUMIN/GLOBULIN RATIO 1.2 (1.0-2.2); ALKALINE PHOSPHATASE 61 IU/L (42-121); ALT ALANINE AMINOTRANSFERASE 18 IU/L (10-60); AST ASPARTATE AMINOTRANSFERASE 22 IU/L (10-42); BILIRUBIN,TOTAL 1.3 mg/dL (0.2-1.0); BUN - BLOOD UREA NITROGEN 21 mg/dL (6-20); CALCIUM 9.2 mg/dL (8.5-10.3); CARBON DIOXIDE - CO2 28 mmol/L (21-32); CHLORIDE 103 mmol/L (101-111); CHOL/HDL RATIO 3.9 (<4.4); CHOLESTEROL 174 mg/dL; CREATININE 0.9 mg/dL (0.4-1.0); GFR - MDRD 62 (>89); GLUCOSE 106 mg/dL (70-100); HDL CHOLESTEROL 45 mg/dL; LDL CHOLESTEROL,CALCULATED 80 mg/dL; LDL/HDL RATIO 1.8 (<4.4); POTASSIUM 4.2 mmol/L (3.5-5.0); SODIUM 141 mmol/L (135-145); TOTAL PROTEIN 7.1 g/dL (6.7-8.2); TRIGLYCERIDES 243 mg/dL; VLDL CHOLESTEROL 49 mg/dL
[2020-12-21 09:13] LABS: THYROID STIMULATING HORMONE 0.59 uIU/mL (0.34-5.60)
[2020-12-21 12:17] LABS: ESTIMATED AVERAGE GLUCOSE 126 mg/dL (70-100)
== END 2020-12-21 08:24 | disposition home or self-care (01) ==
LOC: LAB 08:23
PROVIDERS: ATTEND Family Medicine
DX: E78.1 Pure hyperglyceridemia (principal); M19.90 Unspecified osteoarthritis, unspecified site; M48.02 Spinal stenosis, cervical region; Z68.37 Body mass index [BMI] 37.0-37.9, adult; R73.9 Hyperglycemia, unspecified; G47.33 Obstructive sleep apnea (adult) (pediatric); J45.909 Unspecified asthma, uncomplicated
CPT/HCPCS: 36415; 80053; 80061; 83036; 83721; 84443; 85025

== ENCOUNTER 2021-01-26 19:06 | Outpatient (CLI) | payer OTHER, MEDICARE, BC | END 2021-01-26 19:07 | disposition critical access hospital (66) | LOC: EMS 19:06 | DX: R07.89 Other chest pain (principal); V53.5XXA Driver of pick-up truck or van injured in collision with car, pick-up truck or van in traffic accident, initial encounter; Y92.410 Unspecified street and highway as the place of occurrence of the external cause | CPT/HCPCS: A0425; A0429 ==

== ENCOUNTER 2021-01-26 19:16 | Emergency (ER) | payer OTHER, MEDICARE, BC ==
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
[2021-01-26] MEDS ORDERED: ACETAMINOPHEN 325 MG TABLET PO STA (19:50)
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
[2021-01-26 20:23] VITALS: BP 140/70
== END 2021-01-26 20:18 | disposition home or self-care (01) ==
LOC: EDUNIT# → ED 19:16
DX: S63.501A Unspecified sprain of right wrist, initial encounter (principal); S60.811A Abrasion of right wrist, initial encounter; S50.811A Abrasion of right forearm, initial encounter; V89.2XXA Person injured in unspecified motor-vehicle accident, traffic, initial encounter; W22.11XA Striking against or struck by driver side automobile airbag, initial encounter; Y93.89 Activity, other specified; Y92.410 Unspecified street and highway as the place of occurrence of the external cause; Z87.891 Personal history of nicotine dependence
CPT/HCPCS: 99282; 99283

== ENCOUNTER 2021-02-18 09:41 | Outpatient (CLI) | payer MEDICARE, BC ==
--- NOTE | 2021-02-18 13:01 | SLEEP CARE CONSULTATION ---
Information from patient questionnaire entered by Chanelle Ladd. I have reviewed and concur with the information entered by Chanelle Ladd. This document represents the service I personally performed and the decisions made by me, Nunu Bowser MD, [facility]. History of Present Illness Service Date and Time: 02/18/2021 0941 Previous diagnosis: Severe, Obstructive Sleep Apnea-Hypopnea Syndrome AHI: 39.7 Reason for follow up: annual Equipment obtained from: [employer] Prior sleep studies: Yes Year and Where: 2006 [facility] Type of Sleep Study: Polysomnography HPI additional information: Ms. Bills returned today for follow up of nasal CPAP therapy. She was diagnosed to have severe obstructive sleep apnea-hypopnea syndrome here in 2006. The patient went to [employer] for the equipment and was fitted with a ResMed N30i mask. She reports using the device almost nightly but not all thr ough the night. The compliance report shows usage in 111 nights out of the past 180 nights, averaging 4.3 hours a night. She complained of no particular problem with the device such as soreness on the face, dry nose, epistaxis, nasal congestion or headache. She thinks that the pressure of 10-15 cmH2O is comfortable. On the CPAP therapy she notices improvement in her sleep quality, and that she wakes up feeling fresher in the morning and more awake/alert during the day. The [place] Sleepiness Scale score 6. Her notices no snore at all. The average residual AHI is 3.6; and air leak, 5.6 L/min. The 90th percentile pressure is 13 cmH2O. Sleep Study - Results Prior sleep studies: Yes Year and Where: 2006 [facility] CPAP Compliance Data - Data Reviewed with Patient Average duration of nightly device use: 4 hours 20 minutes Compliance rate %: 33 Current pressure setting (cmH2O): 10-15 Average residual AHI: 3.6 Central apnea: .2 Obstructive apnea: 2.3 Hypopnea: .6 Subjective Missed days of use due to: reports: family emergency Patient concerns: reports: air blowing in eyes, other (headache) Initial [place] Sleepiness Scale score: 12 Current [place] Sleepiness Scale score: 6 Allergies and Home Medications Drug allergies reviewed: Yes Home medication list reviewed: Yes Review of Systems Review of systems same as previous: Yes Physical Exam Height: 5 ft 6 in Impression and Plan IMPRESSION: 1. Obstructive Sleep Apnea-Hypopnea Syndrome, severe, with the patient continuing to do well on nasal CPAP therapy. She has decent compliance and significant clinical improvement. The current pressure appears effective and comfortable. Overall, she is very satisfied with treatment and plans to continue with it long-term. No adjustment is necessary today. Her CPAP is now older than 5 years but she has [id number] compliance, I will not order her a new one yet. I instructed her to use the device more. She needs to put it back on after going to the bathroom in the middle of the night. PLAN: 1. Continue with autoCPAP set at 10 - 15 cmH2O. 2. Try to lose weight 3. Return for a follow up in six months. If she is compliant with treatment, a new machine will be ordered. Follow up with Sleep Care in: 6 months Follow up recommended for: Weight management Visit Type: In Office Time Spent with Patient (minutes): 20 Provider Statement: I spent 100% of the Face to Face Visit with the patient with greater than 50% spent counseling the patient and coordination of care.
== END 2021-02-18 09:42 | disposition home or self-care (01) ==
LOC: SC 09:41
PROVIDERS: ATTEND Internal Medicine Pulmonary Disease
DX: G47.33 Obstructive sleep apnea (adult) (pediatric) (principal)
CPT/HCPCS: 99212; G0463

== ENCOUNTER 2021-04-22 10:21 | Outpatient (CLI) | payer MEDICARE, BC ==
[2021-04-22 10:59] LABS: BASOPHILS % (AUTO) 0.7 %; EOSINOPHILS # (AUTO) 0.3 10^3/uL (0.0-0.7); EOSINOPHILS % (AUTO) 5.7 %; HCT - HEMATOCRIT 45.7 % (37.0-47.0); HGB - HEMOGLOBIN 14.8 g/dL (12.0-16.0); LYMPHOCYTES # (AUTO) 1.6 10^3/uL (1.5-3.5); LYMPHOCYTES % (AUTO) 27.9 %; MEAN CORPUSCULAR HEMOGLOBIN 28.8 pg (27.0-31.0); MEAN CORPUSCULAR HGB CONC 32.4 g/dL (32.0-36.0); MEAN CORPUSCULAR VOLUME 88.9 fL (81.0-99.0); MEAN PLATELET VOLUME 9.2 fL (7.9-10.8); MONOCYTES # (AUTO) 0.4 10^3/uL (0.0-1.0); MONOCYTES % (AUTO) 6.7 %; NEUTROPHILS # (AUTO) 3.4 10^3/uL (1.5-6.6); NEUTROPHILS % (AUTO) 58.8 %; PLT - PLATELET COUNT 215 10^3/uL (130-450); RED BLOOD COUNT 5.14 10^6/uL (4.20-5.40); WHITE BLOOD COUNT 5.8 x10^3/uL (4.8-10.8)
[2021-04-22 11:20] LABS: ALBUMIN/GLOBULIN RATIO 1.3 (1.0-2.2); ALKALINE PHOSPHATASE 61 IU/L (42-121); ALT ALANINE AMINOTRANSFERASE 20 IU/L (10-60); AST ASPARTATE AMINOTRANSFERASE 23 IU/L (10-42); BILIRUBIN,TOTAL 1.5 mg/dL (0.2-1.0); BUN - BLOOD UREA NITROGEN 18 mg/dL (6-20); CALCIUM 9.4 mg/dL (8.5-10.3); CARBON DIOXIDE - CO2 28 mmol/L (21-32); CHLORIDE 98 mmol/L (101-111); CHOL/HDL RATIO 3.7 (<4.4); CHOLESTEROL 167 mg/dL; CREATININE 0.9 mg/dL (0.4-1.0); GFR - MDRD 62 (>89); GLUCOSE 109 mg/dL (70-100); HDL CHOLESTEROL 45 mg/dL; LDL CHOLESTEROL,CALCULATED 85 mg/dL; LDL/HDL RATIO 1.9 (<4.4); SODIUM 135 mmol/L (135-145); TOTAL PROTEIN 7.1 g/dL (6.7-8.2); TRIGLYCERIDES 184 mg/dL; VLDL CHOLESTEROL 37 mg/dL
[2021-04-22 11:26] LABS: ESTIMATED AVERAGE GLUCOSE 126 mg/dL (70-100)
[2021-04-22 11:31] LABS: THYROID STIMULATING HORMONE 1.25 uIU/mL (0.34-5.60)
== END 2021-04-22 10:22 | disposition home or self-care (01) ==
LOC: LAB 10:21
PROVIDERS: ATTEND Family Medicine
DX: E78.1 Pure hyperglyceridemia (principal); M19.90 Unspecified osteoarthritis, unspecified site; M48.02 Spinal stenosis, cervical region; Z68.37 Body mass index [BMI] 37.0-37.9, adult; R73.9 Hyperglycemia, unspecified; G47.33 Obstructive sleep apnea (adult) (pediatric); J45.909 Unspecified asthma, uncomplicated
CPT/HCPCS: 36415; 80053; 80061; 83036; 83721; 84443; 85025

== ENCOUNTER 2021-08-19 09:09 | Outpatient (CLI) | payer MEDICARE, BC ==
[2021-08-19 09:30] LABS: BASOPHILS # (AUTO) 0.1 10^3/uL (0.0-0.1); BASOPHILS % (AUTO) 0.9 %; EOSINOPHILS # (AUTO) 0.4 10^3/uL (0.0-0.7); EOSINOPHILS % (AUTO) 7.2 %; HCT - HEMATOCRIT 43.5 % (37.0-47.0); LYMPHOCYTES # (AUTO) 1.8 10^3/uL (1.5-3.5); LYMPHOCYTES % (AUTO) 31.3 %; MEAN CORPUSCULAR HEMOGLOBIN 28.8 pg (27.0-31.0); MEAN CORPUSCULAR HGB CONC 32.2 g/dL (32.0-36.0); MEAN CORPUSCULAR VOLUME 89.5 fL (81.0-99.0); MEAN PLATELET VOLUME 9.2 fL (7.9-10.8); MONOCYTES # (AUTO) 0.3 10^3/uL (0.0-1.0); MONOCYTES % (AUTO) 5.9 %; NEUTROPHILS # (AUTO) 3.1 10^3/uL (1.5-6.6); NEUTROPHILS % (AUTO) 54.5 %; PLT - PLATELET COUNT 222 10^3/uL (130-450); RED BLOOD COUNT 4.86 10^6/uL (4.20-5.40); RED CELL DISTRIBUTION WIDTH 13.2 % (12.0-15.0); WHITE BLOOD COUNT 5.6 x10^3/uL (4.8-10.8)
[2021-08-19 09:48] LABS: ALBUMIN/GLOBULIN RATIO 1.2 (1.0-2.2); ALKALINE PHOSPHATASE 61 IU/L (42-121); ALT ALANINE AMINOTRANSFERASE 20 IU/L (10-60); AST ASPARTATE AMINOTRANSFERASE 24 IU/L (10-42); BILIRUBIN,TOTAL 1.1 mg/dL (0.2-1.0); BUN - BLOOD UREA NITROGEN 20 mg/dL (6-20); CARBON DIOXIDE - CO2 25 mmol/L (21-32); CHLORIDE 102 mmol/L (101-111); CHOL/HDL RATIO 3.6 (<4.4); CHOLESTEROL 157 mg/dL; CREATININE 0.8 mg/dL (0.4-1.0); GFR - MDRD 71 (>89); GLUCOSE 105 mg/dL (70-100); HDL CHOLESTEROL 44 mg/dL; LDL CHOLESTEROL,CALCULATED 73 mg/dL; LDL/HDL RATIO 1.7 (<4.4); SODIUM 137 mmol/L (135-145); TOTAL PROTEIN 7.3 g/dL (6.7-8.2); TRIGLYCERIDES 202 mg/dL; VLDL CHOLESTEROL 40 mg/dL
[2021-08-19 09:58] LABS: THYROID STIMULATING HORMONE 0.74 uIU/mL (0.34-5.60)
== END 2021-08-19 09:10 | disposition home or self-care (01) ==
LOC: LAB 09:09
PROVIDERS: ATTEND Family Medicine
DX: G60.9 Hereditary and idiopathic neuropathy, unspecified (principal); R73.03 Prediabetes; E78.1 Pure hyperglyceridemia; M54.16 Radiculopathy, lumbar region
CPT/HCPCS: 36415; 80053; 80061; 81599; 83036; 83721; 84443; 85025

== ENCOUNTER 2021-09-16 15:09 | Outpatient (CLI) | payer MEDICARE, BC ==
--- NOTE | 2021-09-17 08:06 | SLEEP CARE CONSULTATION ---
Information from patient questionnaire entered by Albin Mendez MA. I have reviewed and concur with the information entered by Albin Mendez MA. This document represents the service I personally performed and the decisions made by me, Nunu Bowser MD, [facility]. History of Present Illness Service Date and Time: 09/16/2021 1509 Previous diagnosis: Severe, Obstructive Sleep Apnea-Hypopnea Syndrome AHI: 39.7 Reason for follow up: six month (LAST SEEN 02/18/21, RESMED,) Equipment obtained from: [employer] Prior sleep studies: Yes Year and Where: 2006 [facility] SLEEP [facility] Type of Sleep Study: Polysomnography HPI additional information: Ms. Bills returned today for follow up of nasal CPAP therapy. She was diagnosed to have severe obstructive sleep apnea-hypopnea syndrome here in 2006. The patient went to [employer] for the equipment and was fitted with a ResMed N30i mask. She reports using the device sporadically. The compliance report shows usage in 82 nights out of the past 180 nights, averaging 4.3 hours a night. She complained of no particular problem with the device such as so reness on the face, dry nose, epistaxis, nasal congestion or headache. She thinks that the pressure of 10-15 cmH2O is comfortable. On the CPAP therapy she notices improvement in her sleep quality, and that she wakes up feeling fresher in the morning and more awake/alert during the day. The [place] Sleepiness Scale score 6. Her notices no snore at all. The average residual AHI is 5.7; and air leak, 8.5 L/min. The 90th percentile pressure is 13.2 cmH2O. Sleep Study - Results Type of Sleep Study: Polysomnography Prior sleep studies: Yes Year and Where: 2006 [facility] SLEEP [facility] Subjective Missed days of use due to: reports: mask issues (MASK DISCOMFORT,) Initial [place] Sleepiness Scale score: 12 Current [place] Sleepiness Scale score: 11 (09/2021) Allergies and Home Medications Drug allergies reviewed: Yes Home medication list reviewed: Yes Allergy and home medication list: Allergies Penicillins Allergy (Mild, Verified 01/26/21 19:22) Rash Review of Systems Review of systems same as previous: Yes Physical Exam Vital signs obtained and entered by: L. ZULEIMA, [employer] AAMA Blood Pressure: 123/71 (PULSE 78, RESP 18, RIGHT) Cuff size: wrist Heart Rate: 69 O2 Saturation: 98 (PAPER MASK) Height: 5 ft 6 in Weight: 212 lb (WTH CLOTHES) Body Mass Index: 34.2 BMI Classification: Obese Impression and Plan IMPRESSION: 1. Obstructive Sleep Apnea-Hypopnea Syndrome, severe, with the patient continuing to have [id number]. I informed her that I will not be able to order her a new machine at this time. She says that she is undergoing a shoulder surgery and will try to start using her CPAP more afterward. PLAN: 1. Continue with autoCPAP set at 10 - 15 cmH2O. 2. Try to lose weight 3. Return for a follow when she is able to use her CPAP consistently. I will order her a new machine then. Follow up with Sleep Care in: 6 months Visit Type: In Office Time Spent with Patient (minutes): 15 Provider Statement: I spent 100% of the Face to Face Visit with the patient with greater than 50% spent counseling the patient and coordination of care.
[2021-09-17 08:07] VITALS: BP 123/71
== END 2021-09-16 15:10 | disposition home or self-care (01) ==
LOC: SC 15:09
PROVIDERS: ATTEND Internal Medicine Pulmonary Disease
DX: G47.33 Obstructive sleep apnea (adult) (pediatric) (principal); E66.9 Obesity, unspecified; Z68.34 Body mass index [BMI] 34.0-34.9, adult
CPT/HCPCS: 99212; G0463

== ENCOUNTER 2021-11-22 08:05 | Outpatient (CLI) | payer MEDICARE, BC ==
[2021-11-22 08:25] LABS: BASOPHILS % (AUTO) 0.7 %; EOSINOPHILS # (AUTO) 0.5 10^3/uL (0.0-0.7); EOSINOPHILS % (AUTO) 8.2 %; HCT - HEMATOCRIT 43.1 % (37.0-47.0); HGB - HEMOGLOBIN 14.3 g/dL (12.0-16.0); LYMPHOCYTES # (AUTO) 1.7 10^3/uL (1.5-3.5); LYMPHOCYTES % (AUTO) 30.9 %; MEAN CORPUSCULAR HEMOGLOBIN 29.1 pg (27.0-31.0); MEAN CORPUSCULAR HGB CONC 33.2 g/dL (32.0-36.0); MEAN CORPUSCULAR VOLUME 87.8 fL (81.0-99.0); MEAN PLATELET VOLUME 9.3 fL (7.9-10.8); MONOCYTES # (AUTO) 0.4 10^3/uL (0.0-1.0); MONOCYTES % (AUTO) 6.8 %; NEUTROPHILS # (AUTO) 2.9 10^3/uL (1.5-6.6); NEUTROPHILS % (AUTO) 53.2 %; PLT - PLATELET COUNT 215 10^3/uL (130-450); RED BLOOD COUNT 4.91 10^6/uL (4.20-5.40); WHITE BLOOD COUNT 5.5 x10^3/uL (4.8-10.8)
[2021-11-22 08:42] LABS: ALBUMIN/GLOBULIN RATIO 1.3 (1.0-2.2); ALKALINE PHOSPHATASE 66 IU/L (42-121); ALT ALANINE AMINOTRANSFERASE 19 IU/L (10-60); AST ASPARTATE AMINOTRANSFERASE 23 IU/L (10-42); BILIRUBIN,TOTAL 1.4 mg/dL (0.2-1.0); BUN - BLOOD UREA NITROGEN 23 mg/dL (6-20); CALCIUM 9.2 mg/dL (8.5-10.3); CARBON DIOXIDE - CO2 28 mmol/L (21-32); CHLORIDE 103 mmol/L (101-111); CHOL/HDL RATIO 4.2 (<4.4); CHOLESTEROL 169 mg/dL; GFR - MDRD 55 (>89); GLUCOSE 99 mg/dL (70-100); HDL CHOLESTEROL 40 mg/dL; LDL CHOLESTEROL,CALCULATED 82 mg/dL; LDL/HDL RATIO 2.1 (<4.4); POTASSIUM 4.1 mmol/L (3.5-5.0); SODIUM 140 mmol/L (135-145); TOTAL PROTEIN 7.2 g/dL (6.7-8.2); TRIGLYCERIDES 233 mg/dL; VLDL CHOLESTEROL 47 mg/dL
[2021-11-22 08:54] LABS: THYROID STIMULATING HORMONE 1.77 uIU/mL (0.34-5.60)
[2021-11-22 11:53] LABS: ESTIMATED AVERAGE GLUCOSE 126 mg/dL (70-100)
== END 2021-11-22 08:06 | disposition home or self-care (01) ==
LOC: LAB 08:05
PROVIDERS: ATTEND Family Medicine
DX: E78.1 Pure hyperglyceridemia (principal); G60.9 Hereditary and idiopathic neuropathy, unspecified; R73.03 Prediabetes; M54.16 Radiculopathy, lumbar region
CPT/HCPCS: 36415; 80053; 80061; 83036; 83721; 84443; 85025

== ENCOUNTER 2022-02-20 08:29 | Outpatient (CLI) | payer MEDICARE, BC ==
[2022-02-20 09:05] LABS: CALCIUM 9.2 mg/dL (8.5-10.3); CREATININE 0.9 mg/dL (0.4-1.0); POTASSIUM 3.7 mmol/L (3.5-5.0)
[2022-02-20 12:42] LABS: ESTIMATED AVERAGE GLUCOSE 120 mg/dL (70-100); HEMOGLOBIN A1c% 5.8 % (4.27-6.07)
== END 2022-02-20 08:30 | disposition home or self-care (01) ==
LOC: LAB 08:29
PROVIDERS: ATTEND Family Medicine
DX: I10 Essential (primary) hypertension (principal); R73.03 Prediabetes; M19.90 Unspecified osteoarthritis, unspecified site; M48.02 Spinal stenosis, cervical region; J45.909 Unspecified asthma, uncomplicated
CPT/HCPCS: 36415; 80048; 83036

== ENCOUNTER 2022-02-24 09:11 | Outpatient (CLI) | payer MEDICARE, BC ==
--- NOTE | 2022-02-24 09:36 | SLEEP CARE CONSULTATION ---
Information from patient questionnaire entered by Kali Cazares. I have reviewed and concur with the information entered by Kali Cazares. This document represents the service I personally performed and the decisions made by me, Nunu Bowser MD, [facility]. History of Present Illness Service Date and Time: 02/24/2022 0911 Previous diagnosis: Severe, Obstructive Sleep Apnea-Hypopnea Syndrome AHI: 39.7 Reason for follow up: six month (F/U RESMED) Equipment obtained from: [employer] Prior sleep studies: Yes Year and Where: 2006 [facility] Type of Sleep Study: Home sleep study HPI additional information: Ms. Bills returned today for follow up of nasal CPAP therapy. She was diagnosed to have severe obstructive sleep apnea-hypopnea syndrome here in 2006. The patient went to [employer] for the equipment and was fitted with a ResMed N30i mask. She reports using the device sporadically. The compliance report shows usage in 11 nights out of the past 90 nights, averaging 3.3 hours a night. She complained of not getting enough air at the beginning of the night (ramp set at 6 cmH2O). She thinks that the pressure of 10-15 cmH2O is comfortable. Sleep Study - Results Type of Sleep Study: Polysomnography Prior sleep studies: Yes Year and Where: 2006 [facility] CPAP Compliance Data - Data Reviewed with Patient Average duration of nightly device use: 3HRS,37MIN Compliance rate %: 20 (08/17/21-09/15/21) Current pressure setting (cmH2O): 10-15 Average residual AHI: 5.4 Subjective Initial [place] Sleepiness Scale score: 12 Current [place] Sleepiness Scale score: 11 (02/24/2022) Allergies and Home Medications Drug allergies reviewed: Yes Home medication list reviewed: Yes Allergy and home medication list: Allergies Penicillins Allergy (Mild, Verified 01/26/21 19:22) Rash Review of Systems Review of systems same as previous: Yes Physical Exam Vital signs obtained and entered by: KALI Stokes MA Blood Pressure: 118/70 (LEFT ARM) Cuff size: long Heart Rate: 69 O2 Saturation: 99 Height: 5 ft 6 in Weight: 212 lb 6.4 oz Body Mass Index: 34.2 BMI Classification: Obese Impression and Plan IMPRESSION: 1. Obstructive Sleep Apnea-Hypopnea Syndrome, severe, with the patient continuing to have [id number]. I informed her that I will not be able to order her a new machine at this time. We talked about repeating the in-laboratory polysomnography after 15 years and 20-lb weight loss. She would like to keep trying to use her CPAP for now. PLAN: 1. Ramp was turned off. Continue with autoCPAP set at 10 - 15 cmH2 O. 2. Try to lose more weight 3. Return for a follow in 2 months. 4. Consider repeating the in-laboratory polysomnography. Continue with device pressure at (cmH2O): 10 - 15 Counseling Topics: Weight control Follow up with Sleep Care in: 1-2 months Visit Type: In Office Time Spent with Patient (minutes): 20 Provider Statement: I spent 100% of the Face to Face Visit with the patient with greater than 50% spent counseling the patient and coordination of care.
[2022-02-24 09:37] VITALS: BP 118/70
== END 2022-02-24 09:12 | disposition home or self-care (01) ==
LOC: SC 09:11
PROVIDERS: ATTEND Internal Medicine Pulmonary Disease
DX: G47.33 Obstructive sleep apnea (adult) (pediatric) (principal); E66.9 Obesity, unspecified; Z68.34 Body mass index [BMI] 34.0-34.9, adult
CPT/HCPCS: 99213; G0463; 99212

== ENCOUNTER 2022-04-07 09:05 | Outpatient (CLI) | payer MEDICARE, BC ==
--- NOTE | 2022-04-07 18:48 | SLEEP CARE CONSULTATION ---
Information from patient questionnaire entered by Kali Cazares. I have reviewed and concur with the information entered by Kali Cazares. This document represents the service I personally performed and the decisions made by me, Nunu Bowser MD, [facility]. History of Present Illness Service Date and Time: 04/07/2022904 Previous diagnosis: Severe, Obstructive Sleep Apnea-Hypopnea Syndrome AHI: 39.7 Reason for follow up: other (2 MONTH F/U) Equipment obtained from: [employer] Prior sleep studies: Yes Year and Where: 2006 [facility] Type of Sleep Study: Polysomnography HPI additional information: Ms. Bills returned today for follow up of nasal CPAP therapy. She was diagnosed to have severe obstructive sleep apnea-hypopnea syndrome here in 2006. The patient went to [employer] for the equipment and was fitted with a ResMed N30i mask. On her last visit, she was eligible for a new machine, but her compliance was inadequateshe used the device 11 nights out of 90 nights, averaging 3.3 hours a night. The compliance report downloaded today shows usage in 24 out of the past 30 nights, averaging 3.8 hours a night. The residual AHI is 9.0 and average air leak is 7.9 L/minute. She complained of not getting enough air at the beginning of the night (ramp set at 6 cmH2O). She thinks that the pressure of 10-15 cmH2O is too low. Sleep Study - Results Type of Sleep Study: Polysomnography Prior sleep studies: Yes Year and Where: 2006 [facility] SLEEP [facility] Subjective Initial [place] Sleepiness Scale score: 12 Current [place] Sleepiness Scale score: 11 (04/07/2022) Allergies and Home Medications Drug allergies reviewed: Yes Home medication list reviewed: Yes Allergy and home medication list: Allergies Penicillins Allergy (Mild, Verified 02/24/22 09:23) Rash Review of Systems Review of systems same as previous: Yes Physical Exam Vital signs obtained and entered by: KALI Stokes MA Blood Pressure: 124/72 (LEFT ARM) Cuff size: regular Heart Rate: 63 O2 Saturation: 96 Height: 5 ft 6 in Weight: 213 lb Body Mass Index: 34.3 BMI Classification: Obese Impression and Plan IMPRESSION: 1. Obstructive Sleep Apnea-Hypopnea Syndrome, severe, with the patient continuing to have [id number]. I informed her that I will not be able to order her a new machine at this time. We talked about repeating the in-laboratory polysomnography after 15 years and 20-lb weight loss. She would like to keep trying to use her CPAP for now. Because the residual AHI is elevated and the residual respiratory events consist mostly of obstructive apneas, I will raise the pressure slightly. PLAN: 1. autoCPAP set to 11 - 17 cmH2O on the device. 2. Try to lose more weight 3. Return for a follow in 3 months. 4. Consider repeating the in-laboratory polysomnography. Follow up with Sleep Care in: 3 months Visit Type: In Office Time Spent with Patient (minutes): 15 Provider Statement: I spent 100% of the Face to Face Visit with the patient with greater than 50% spent counseling the patient and coordination of care.
[2022-04-07 18:49] VITALS: BP 124/72
== END 2022-04-07 09:06 | disposition home or self-care (01) ==
LOC: SC 09:05
PROVIDERS: ATTEND Internal Medicine Pulmonary Disease
DX: G47.33 Obstructive sleep apnea (adult) (pediatric) (principal)
CPT/HCPCS: 99212; G0463

== ENCOUNTER 2022-06-20 10:05 | Outpatient (CLI) | payer MEDICARE, BC ==
[2022-06-20 10:24] LABS: BASOPHILS % (AUTO) 0.6 %; EOSINOPHILS # (AUTO) 0.3 10^3/uL (0.0-0.7); EOSINOPHILS % (AUTO) 6.3 %; HCT - HEMATOCRIT 45.3 % (37.0-47.0); HGB - HEMOGLOBIN 14.3 g/dL (12.0-16.0); LYMPHOCYTES # (AUTO) 1.6 10^3/uL (1.5-3.5); LYMPHOCYTES % (AUTO) 30.7 %; MEAN CORPUSCULAR HEMOGLOBIN 27.8 pg (27.0-31.0); MEAN CORPUSCULAR HGB CONC 31.6 g/dL (32.0-36.0); MEAN PLATELET VOLUME 9.2 fL (7.9-10.8); MONOCYTES # (AUTO) 0.3 10^3/uL (0.0-1.0); MONOCYTES % (AUTO) 5.7 %; NEUTROPHILS % (AUTO) 56.3 %; PLT - PLATELET COUNT 244 10^3/uL (130-450); RED BLOOD COUNT 5.15 10^6/uL (4.20-5.40); RED CELL DISTRIBUTION WIDTH 12.9 % (12.0-15.0); WHITE BLOOD COUNT 5.3 x10^3/uL (4.8-10.8)
[2022-06-20 10:39] LABS: MICROALBUM/CREATININE RATIO,UR 2.8 ug/mg (<30.0); MICROALBUMIN,URINE 0.5 mg/dL (0-300.0)
[2022-06-20 10:53] LABS: THYROID STIMULATING HORMONE 0.49 uIU/mL (0.34-5.60)
[2022-06-20 11:55] LABS: ALBUMIN 3.7 g/dL (3.2-5.5); ALBUMIN/GLOBULIN RATIO 1.2 (1.0-2.2); ALKALINE PHOSPHATASE 58 IU/L (42-121); ALT ALANINE AMINOTRANSFERASE 17 IU/L (10-60); AST ASPARTATE AMINOTRANSFERASE 22 IU/L (10-42); BILIRUBIN,TOTAL 1.4 mg/dL (0.2-1.0); BUN - BLOOD UREA NITROGEN 13 mg/dL (6-20); CALCIUM 9.1 mg/dL (8.5-10.3); CARBON DIOXIDE - CO2 26 mmol/L (21-32); CHLORIDE 100 mmol/L (101-111); CHOL/HDL RATIO 3.6 (<4.4); CHOLESTEROL 140 mg/dL; GFR - MDRD 54 (>89); GLUCOSE 104 mg/dL (70-100); HDL CHOLESTEROL 39 mg/dL; LDL CHOLESTEROL,CALCULATED 65 mg/dL; LDL/HDL RATIO 1.7 (<4.4); POTASSIUM 3.8 mmol/L (3.5-5.0); SODIUM 135 mmol/L (135-145); TOTAL PROTEIN 6.9 g/dL (6.7-8.2); TRIGLYCERIDES 182 mg/dL; VLDL CHOLESTEROL 36 mg/dL
[2022-06-20 12:44] LABS: ESTIMATED AVERAGE GLUCOSE 126 mg/dL (70-100)
== END 2022-06-20 10:06 | disposition home or self-care (01) ==
LOC: LAB 10:05
PROVIDERS: ATTEND Family Medicine
DX: I10 Essential (primary) hypertension (principal); E78.2 Mixed hyperlipidemia; R73.03 Prediabetes
CPT/HCPCS: 36415; 80053; 80061; 82043; 82570; 83036; 83721; 84443; 85025

== ENCOUNTER 2022-07-14 09:10 | Outpatient (CLI) | payer MEDICARE, OTHER ==
[2022-07-14 16:29] VITALS: BP 126/64
--- NOTE | 2022-07-14 16:29 | SLEEP CARE CONSULTATION ---
Information from patient questionnaire entered by Kali Cazares. I have reviewed and concur with the information entered by Kali Cazares. This document represents the service I personally performed and the decisions made by me, Nunu Bowser MD, [facility]. History of Present Illness Service Date and Time: 07/14/2022 0910 Previous diagnosis: Severe, Obstructive Sleep Apnea-Hypopnea Syndrome AHI: 39.7 Reason for follow up: three month (F/U) Equipment type: CPAP (RESMED SD CARD NEEDED FOR DOWNLOAD AND PRESSURE CHANGES) Equipment obtained from: [employer] Prior sleep studies: Yes Year and Where: 2006 [facility] SLEEP [facility] Type of Sleep Study: Polysomnography HPI additional information: Ms. Bills returned today for follow up of nasal CPAP therapy. She was diagnosed to have severe obstructive sleep apnea-hypopnea syndrome here in 2006. The patient went to [employer] for the equipment and was fitted with a ResMed N30i mask. On her last visit, she was eligible for a new machine, but her compliance was inadequate. The compliance report downloaded today shows usage in 29 out of the past 30 nights, averaging 5.5 hours a night. The > 4 hour compliance rate for the past 30 days is 73%. The residual AHI is 4.8 and average air leak is 5.7 L/minute. She thinks that the pressure of 11-17 cmH2O is too low. She finds the treatment beneficial. Her [place] Sleepiness Scale score is 8. Sleep Study - Results Type of Sleep Study: Polysomnography Prior sleep studies: Yes Year and Where: 2006 [facility] Subjective Initial [place] Sleepiness Scale score: 12 Current [place] Sleepiness Scale score: 8 (07/14/22) Allergies and Home Medications Drug allergies reviewed: Yes Home medication list reviewed: Yes Allergy and home medication list: Allergies Penicillins Allergy (Mild, Verified 04/07/22 09:18) Rash Review of Systems Review of systems same as previous: Yes Physical Exam Vital signs obtained and entered by: KALI Stokes MA Blood Pressure: 126/64 (LEFT ARM) Cuff size: regular Heart Rate: 64 O2 Saturation: 95 Height: 5 ft 6 in Weight: 213 lb Body Mass Index: 34.3 BMI Classification: Obese Impression and Plan IMPRESSION: 1. Obstructive Sleep Apnea-Hypopnea Syndrome, severe, with the patient now having good compliance. Because the CPAP is now older than the useful life of 5 years, I will order the patient a new one and make it an autoCPAP set between 11 and 17 cmH2O. PLAN: 1. Prescription made for an autoCPAP, heated humidifier, and related supplies through her existing durable medical supplier [employer] ([email or web address]) 2. Try to lose more weight 3. Return for follow up in a year or earlier if there is any problem. Counseling Topics: Weight control Prescriptions: Auto CPAP Follow up with Sleep Care in: 1-2 months Visit Type: In Office Time Spent with Patient (minutes): 15 Provider Statement: I spent 100% of the Face to Face Visit with the patient with greater than 50% spent counseling the patient and coordination of care.
== END 2022-07-14 09:11 | disposition home or self-care (01) ==
LOC: SC 09:10
PROVIDERS: ATTEND Internal Medicine Pulmonary Disease
DX: G47.33 Obstructive sleep apnea (adult) (pediatric) (principal); E66.9 Obesity, unspecified; Z68.34 Body mass index [BMI] 34.0-34.9, adult
CPT/HCPCS: 99212; G0463

== ENCOUNTER 2022-09-17 14:36 | Outpatient (CLI) | payer MEDICARE, OTHER ==
[2022-09-17 15:10] LABS: CALCIUM 9.3 mg/dL (8.5-10.3); CREATININE 0.9 mg/dL (0.4-1.0); POTASSIUM 3.6 mmol/L (3.5-5.0)
[2022-09-17 17:06] LABS: ESTIMATED AVERAGE GLUCOSE 123 mg/dL (70-100); HEMOGLOBIN A1c% 5.9 % (4.27-6.07)
== END 2022-09-17 14:37 | disposition home or self-care (01) ==
LOC: LAB 14:36
PROVIDERS: ATTEND Family Medicine
DX: R73.03 Prediabetes (principal)
CPT/HCPCS: 36415; 80048; 83036

== ENCOUNTER 2022-09-30 13:17 | Outpatient (CLI) | payer MEDICARE ==
--- NOTE | 2022-09-30 14:44 | XRAY Report ---
PROCEDURE: Hand 2 View RT INDICATIONS: BONE ANOMALY TECHNIQUE: 2 views of the hand(s) acquired. COMPARISON: None. FINDINGS: Bones: No fractures or dislocations. No suspicious bony lesions. Minimal scattered periarticular joint space narrowing is present. Very minimal periarticular lucencies are noted at the first MCP julianna nt as well as at the distal ulna. Soft tissues: No suspicious soft tissue calcifications or masses. IMPRESSION: Scattered IP narrowing most suggestive of arthritis. Small areas of periarticular lucency are present suggestive of subchondral degenerative cysts. Reviewed by: Marlyn Calzada MD on 09/30/2022 2:43 PM PDT Approved by: Marlyn Calzada MD on 09/30/2022 2:43 PM PDT Station ID: [id number]
--- NOTE | 2022-09-30 18:49 | XRAY Report ---
PROCEDURE: Ankle 3 View RT INDICATIONS: OTHER CYST OF BONE TECHNIQUE: 3 views of the ankle were acquired. COMPARISON: None. FINDINGS: Bones: No fractures or dislocations. Ankle mortise is normally aligned. No suspicious bony lesions . Soft tissues: No tibiotalar joint effusion. Achilles tendon appears normal. IMPRESSION: Unremarkable right ankle radiographs Reviewed by: Carlos Gonzalez MD on 09/30/2022 5:48 PM AKDT Approved by: Carlos Gonzalez MD on 09/30/2022 5:48 PM AKDT Station ID: [id number]
== END 2022-09-30 13:18 | disposition home or self-care (01) ==
LOC: DI 13:17
PROVIDERS: ATTEND Family Medicine
DX: M19.041 Primary osteoarthritis, right hand (principal)

== ENCOUNTER 2023-04-16 12:40 | Outpatient (CLI) | payer MEDICARE ==
[2023-04-16 13:16] LABS: CALCIUM 9.8 mg/dL (8.5-10.3); POTASSIUM 4.3 mmol/L (3.5-4.5)
[2023-04-17 06:47] LABS: ESTIMATED AVERAGE GLUCOSE 123 mg/dL (70-100); HEMOGLOBIN A1c% 5.9 % (4.27-6.07)
== END 2023-04-16 12:41 | disposition home or self-care (01) ==
LOC: LAB 12:40
PROVIDERS: ATTEND Family Medicine
DX: R73.03 Prediabetes (principal); M54.16 Radiculopathy, lumbar region; M19.90 Unspecified osteoarthritis, unspecified site
CPT/HCPCS: 36415; 80048; 83036

== ENCOUNTER 2023-08-05 10:42 | Outpatient (CLI) | payer MEDICARE ==
[2023-08-05 11:13] LABS: ALBUMIN/GLOBULIN RATIO 1.2 (1.0-2.2); ALKALINE PHOSPHATASE 70 IU/L (42-121); ALT ALANINE AMINOTRANSFERASE 14 IU/L (10-60); AST ASPARTATE AMINOTRANSFERASE 19 IU/L (10-42); BILIRUBIN,TOTAL 1.6 mg/dL (0.2-1.0); BUN - BLOOD UREA NITROGEN 19 mg/dL (6-20); CALCIUM 9.8 mg/dL (8.5-10.3); CARBON DIOXIDE - CO2 28 mmol/L (21-32); CHLORIDE 102 mmol/L (101-111); CHOL/HDL RATIO 3.6 (<4.4); CHOLESTEROL 148 mg/dL; GFR - MDRD 54 (>89); GLUCOSE 95 mg/dL (74-104); HDL CHOLESTEROL 41 mg/dL; LDL CHOLESTEROL,CALCULATED 58 mg/dL; LDL/HDL RATIO 1.4 (<4.4); POTASSIUM 4.1 mmol/L (3.5-4.5); SODIUM 136 mmol/L (135-145); TOTAL PROTEIN 7.4 g/dL (6.4-8.9); TRIGLYCERIDES 244 mg/dL (48-352); VLDL CHOLESTEROL 49 mg/dL
[2023-08-05 11:16] LABS: BASOPHILS # (AUTO) 0.1 10^3/uL (0.0-0.1); BASOPHILS % (AUTO) 0.9 %; EOSINOPHILS # (AUTO) 0.4 10^3/uL (0.0-0.7); EOSINOPHILS % (AUTO) 7.2 %; HCT - HEMATOCRIT 46.2 % (37.0-47.0); HGB - HEMOGLOBIN 14.2 g/dL (12.0-16.0); LYMPHOCYTES # (AUTO) 1.6 10^3/uL (1.5-3.5); LYMPHOCYTES % (AUTO) 30.5 %; MEAN CORPUSCULAR HEMOGLOBIN 27.4 pg (27.0-31.0); MEAN CORPUSCULAR HGB CONC 30.7 g/dL (32.0-36.0); MEAN PLATELET VOLUME 11.1 fL (7.9-10.8); MONOCYTES # (AUTO) 0.3 10^3/uL (0.0-1.0); MONOCYTES % (AUTO) 6.3 %; NEUTROPHILS # (AUTO) 2.9 10^3/uL (1.5-6.6); NEUTROPHILS % (AUTO) 54.5 %; RED BLOOD COUNT 5.19 10^6/uL (4.20-5.40); RED CELL DISTRIBUTION WIDTH 13.5 % (12.0-15.0); WHITE BLOOD COUNT 5.3 x10^3/uL (4.8-10.8)
[2023-08-05 11:27] LABS: THYROID STIMULATING HORMONE 0.79 uIU/mL (0.34-5.60)
[2023-08-05 11:41] LABS: PLATELET MORPHOLOGY PLATELET CLUMPING (NORMAL)
[2023-08-05 12:54] LABS: ESTIMATED AVERAGE GLUCOSE 126 mg/dL (70-100)
== END 2023-08-05 10:43 | disposition home or self-care (01) ==
LOC: LAB 10:42
PROVIDERS: ATTEND Family Medicine
DX: I10 Essential (primary) hypertension (principal); R73.03 Prediabetes; M47.816 Spondylosis without myelopathy or radiculopathy, lumbar region; G60.9 Hereditary and idiopathic neuropathy, unspecified; M54.16 Radiculopathy, lumbar region; J44.9 Chronic obstructive pulmonary disease, unspecified; E78.1 Pure hyperglyceridemia
CPT/HCPCS: 36415; 80053; 80061; 83036; 83721; 84443; 85025

== ENCOUNTER 2023-08-17 09:25 | Outpatient (CLI) | payer MEDICARE ==
--- NOTE | 2023-08-17 10:10 | SLEEP CARE CONSULTATION ---
Information from patient questionnaire entered by Kali Cazares. I have reviewed and concur with the information entered by Kali Cazares. This document represents the service I personally performed and the decisions made by me, Nunu Bowser MD, [facility]. History of Present Illness Service Date and Time: 08/17/2023924 Previous diagnosis: Severe, Obstructive Sleep Apnea-Hypopnea Syndrome AHI: 39.7 Reason for follow up: annual (LAST SEEN 07/2022) Equipment type: CPAP (RESMED SD CARD NEEDED FOR DOWNLOAD AND PRESSURE CHANGES) Equipment obtained from: [employer] Prior sleep studies: Yes Year and Where: 2006 [facility] SLEEP [facility] Type of Sleep Study: Polysomnography HPI additional information: Ms. Bills returned today for an annual follow up of nasal CPAP therapy. She was diagnosed to have severe obstructive sleep apnea-hypopnea syndrome here in 2006. The patient acquired a new ResMed AirSense 11 from [employer] last year. She wears a ResMed N30i mask. The compliance report downloaded today shows usage in 327 out of the past 365 nights, averaging 5.6 hours a night. The > 4 hour compliance rate for the past 365 days is 68%. The residual AHI is 7.3 and average air leak is 5.8 L/minute. She thinks that the pressure of 10 cmH2O even though the prescription was for 11 17 cmH2O. She feels that the pressure is too low. She finds the treatment beneficial. The residual AHI is 7.3. Her new machine is not online. [place] Sleepiness Scale score is 4. Sleep Study - Results Type of Sleep Study: Polysomnography Prior sleep studies: Yes Year and Where: 2006 [facility] SLEEP [facility] Subjective Initial [place] Sleepiness Scale score: 12 Current [place] Sleepiness Scale score: 4 (08/17/23) Allergies and Home Medications Drug allergies reviewed: Yes Home medication list reviewed: Yes Allergy and home medication list: Allergies Penicillins Allergy (Mild, Verified 08/13/23 13:32) Rash Review of Systems Review of systems same as previous: Yes Physical Exam Vital signs obtained and entered by: KALI Stokes MA Blood Pressure: 136/74 (LEFT ARM) Cuff size: regular Heart Rate: 64 O2 Saturation: 97 Height: 5 ft 6 in Weight: 219 lb 6.4 oz Body Mass Index: 35.4 BMI Classification: Obese Impression and Plan IMPRESSION: 1. Obstructive Sleep Apnea-Hypopnea Syndrome, severe, with the patient now having good compliance the past two months. The current pressure is incorrectly set by [employer]. I will change it to autoCPAP mode at 11 17 cmH2O. PLAN: 1. Machine manually set to 11 17 cmH2O. 2. Try to lose weight 3. Get a new memory card from [employer] because hers is corrupted. 4. Contact [employer] for online access. 5. Return for a follow up in a year or earlier if there is any problem. Adjust device pressure to (cmH2O): 11 - 17 Counseling Topics: Weight control Follow up with Sleep Care in: 1 year Follow up recommended for: Weight management Visit Type: In Office Time Spent with Patient (minutes): 15 Provider Statement: I spent 100% of the Face to Face Visit with the patient with greater than 50% spent counseling the patient and coordination of care.
[2023-08-17 10:18] VITALS: BP 136/74; O2SAT 97
== END 2023-08-17 09:26 | disposition home or self-care (01) ==
LOC: SC 09:25
PROVIDERS: ATTEND Internal Medicine Pulmonary Disease
DX: G47.33 Obstructive sleep apnea (adult) (pediatric) (principal)
CPT/HCPCS: 99212; G0463

== ENCOUNTER 2023-11-24 08:00 | Outpatient (CLI) | payer MEDICARE | END 2023-11-24 23:59 | disposition home or self-care (01) | LOC: LAB.N 08:00 | PROVIDERS: ATTEND Physician Assistant Medical | DX: N30.00 Acute cystitis without hematuria (principal) | CPT/HCPCS: 87077; 87086; 87181 ==